=== PATIENT | male | born 1950 | race African-American/Black ===

== ENCOUNTER 2022-03-31 17:15 | Outpatient (CLI) | payer MEDICARE | END 2022-03-31 17:16 | disposition home or self-care (01) | LOC: LABBT 17:15 | PROVIDERS: ATTEND Internal Medicine Gastroenterology | DX: Z20.822 Contact with and (suspected) exposure to COVID-19 (principal) | CPT/HCPCS: 87811 ==

== ENCOUNTER 2022-04-04 09:55 | Day surgery (SDC) | payer MEDICARE ==
[2022-04-01 10:56] VITALS: BMI 29.9
[2022-04-04] MEDS ORDERED: ePHEDrine 50 MG/ML VIAL ONE (12:13)
[2022-04-04] MEDS ORDERED: PROPOFOL 200 MG/20 ML VIAL ONE (12:13)
== END 2022-04-04 13:42 | disposition home or self-care (01) ==
LOC: SDC 09:55
PROVIDERS: ATTEND Internal Medicine Gastroenterology
PROC: 0DBL8ZX Excision of Transverse Colon, Via Natural or Artificial Opening Endoscopic, Diagnostic (ICD-10-PCS; principal; 2022-04-04)
DX: D12.3 Benign neoplasm of transverse colon (principal); K64.1 Second degree hemorrhoids; F17.290 Nicotine dependence, other tobacco product, uncomplicated; Z79.01 Long term (current) use of anticoagulants; Z79.899 Other long term (current) drug therapy; Z95.810 Presence of automatic (implantable) cardiac defibrillator
CPT/HCPCS: 88305; J2704; J3490

== ENCOUNTER 2022-06-25 21:22 | Inpatient (IN) | payer MEDICARE ==
[~2022-06-25 21:22] MED LIST: Heparin 1,000 UNITS/ML VIAL ONE
[2022-06-25] MEDS ORDERED: Ondansetron PF 4 MG/2 ML Vial IVP PRN (23:56)
[2022-06-25] MEDS ORDERED: Ondansetron ODT 4 MG TAB PO PRN (23:56)
[2022-06-25] MEDS ORDERED: Acetaminophen 650 MG Suppository PR PRN (23:56)
[2022-06-25] MEDS ORDERED: Acetaminophen 325 MG TAB PO PRN (23:56)
[2022-06-26] MEDS ORDERED: Lactated Ringer's 1,000 ML IV SCH (00:15)
[2022-06-26] MEDS ORDERED: CHLORPROMAZINE HCL 10 MG PO PRN (01:44)
[2022-06-26] MEDS ORDERED: Acetaminophen 325 MG TAB PER TUBE PRN (01:46)
[2022-06-26] MEDS ORDERED: Ondansetron ODT 4 MG TAB PER TUBE PRN (01:47)
[2022-06-26] MEDS ORDERED: chlorproMAZINE HCl 25 MG TAB PER TUBE PRN (02:51)
[2022-06-26] MEDS ORDERED: VANCOMYCIN 1.25 GM/250 ML BAG 1.25 GM in Premix Bag 1 BAG IVPB SCH (03:00)
[2022-06-26] MEDS ORDERED: Cefepime 2 GM in Sodium Chloride 0.9% 100 ML IVPB SCH ×2 (06:00→09:00)
[2022-06-26 06:16] LABS: Actual Bicarbonate (HCO3a) 25.3 mEq/L (22-28); Base Excess (BEa) 3.6 mEq/L (-2.0 to +3.0); CO2 Tension 29.1 mmHg (35.0-45.0); Calcium, Ionized (arterial) 1.08 mmol/L (1.12-1.30); Carboxyhemoglobin (COHb) 0.5 gm% (0.0-3.0); Hemoglobin (Hb) 11.2 g/dL (14.0-18.0); O2 Tension (PaO2), arterial 62.4 mmHg (> 70.0); Potassium - ABG Lab 4.23 mmol/L (3.70-5.30); pH, Arterial 7.56 (7.35-7.45)
[2022-06-26 06:19] LABS: Puncture Site RRA
[2022-06-26 06:29] LABS: ALT (SGPT) 31 U/L (8-55); AST (SGOT) 21 U/L (5-34); Alkaline Phosphatase 110 U/L (40-110); Anion Gap 20 mmol/L (10-20); BUN (Urea Nitrogen) 22 mg/dL (8.4-25.7); Bilirubin, Total 1.9 mg/dL (0.2-1.2); Calc. Creatinine Clearance 38 mL/min (70-130); Calcium 9.1 mg/dL (7.8-10.44); Carbon Dioxide 25 mmol/L (23-31); Chloride 90 mmol/L (98-107); Estimated GFR 49; Globulin 4.5 g/dL (2.4-3.5); Glucose 145 mg/dL (83-110); Potassium 4.1 mmol/L (3.5-5.1); Protein, Total 7.5 g/dL (5.8-8.1); Sodium 131 mmol/L (136-145)
[2022-06-26 06:45] LABS: Band 22 % (5-11); Hemoglobin 10.2 g/dL (14.0-18.0); Hypochromia SLIGHT = 6-15 cells (100X) (0-5/hpf); Lymphocytes 3 % (21-51); MDiff Complete? YES; Mean Corpuscular Hemoglobin 30.4 pg (27.0-31.0); Mean Corpuscular Volume 98.2 fl (78.0-98.0); Mean Platelet Volume 7.5 fL (7.4-10.4); Monocytes 2 % (0-10); Neutrophil 73 % (42-75); Platelet Count 356 10x3/uL (130-400); Platelet Morphology Comment Appears Adequate; RBC Distribution Width 14.8 % (11.5-14.5); Red Blood Cell (RBC) Count 3.36 mill/uL (4.70-6.10); White Blood Cell (WBC) Count 22.1 10x3/uL (4.8-10.8)
[2022-06-26] MEDS ORDERED: Ketorolac Tromethamine 30 MG/ML VIAL IVP SCH (06:45)
[2022-06-26] MEDS: Budesonide 0.5 MG/2 ML NEB NEB SCH ×2 (07:11→18:49)
[2022-06-26] MEDS ORDERED: Ferrous Sulfate 325 MG TAB PO SCH (08:00)
[2022-06-26] MEDS ORDERED: Electrolyte Replacement Protocol FS PRN (08:45)
[2022-06-26] MEDS ORDERED: Electrolyte Replacement Protocol 1 EACH FS SCH (08:45)
[2022-06-26] MEDS ORDERED: Tamsulosin HCl 0.4 MG CAP PO SCH (09:00)
[2022-06-26] MEDS ORDERED: Folic Acid 1 MG TAB PER TUBE SCH (09:00)
[2022-06-26] MEDS ORDERED: Meropenem 1 GM in Sodium Chloride 0.9% 100 ML IVPB SCH (09:00)
[2022-06-26] MEDS ORDERED: Carvedilol 6.25 MG TAB PO SCH (09:00)
[2022-06-26] MEDS ORDERED: Allopurinol 300 MG TAB PO SCH (09:00)
[2022-06-26] MEDS ORDERED: Carvedilol 6.25 MG TAB PER TUBE SCH (09:00)
[2022-06-26] MEDS ORDERED: Famotidine 20 MG TAB PO SCH (09:00)
[2022-06-26] MEDS ORDERED: Allopurinol 300 MG TAB PER TUBE SCH (09:00)
[2022-06-26] MEDS ORDERED: Enoxaparin Sodium 40 MG/0.4 ML SYRINGE SC SCH (09:00)
[2022-06-26 09:05] LABS: Hemoglobin 9.8 g/dL (14.0-18.0); Platelet Count 253 10x3/uL (130-400)
[2022-06-26 09:19] LABS: Troponin I 0.102 ng/mL (< 0.028)
[2022-06-26] MEDS ORDERED: Iopamidol-370 76% 500 ML 1 ML ONE (09:33)
[2022-06-26] MEDS: Lactated Ringer's 1,000 ML IV SCH (09:40)
[2022-06-26] MEDS: metroNIDAZOLE 500 MG in Premix Bag 1 BAG IVPB SCH ×3 (09:40→22:27)
[2022-06-26] MEDS: Pantoprazole 40 MG VIAL IVP SCH (09:41)
[2022-06-26] MEDS: Heparin 25,000 units/D5W 500 ML IVPB SCH (09:41)
[2022-06-26] MEDS: Heparin 10,000 UNITS/ 10 ML VIAL SLOW IVP SCH ×2 (09:56→16:27)
[2022-06-26] MEDS: Vancomycin HCl 750 MG in Sodium Chloride 0.9% 250 ML 250 ML IVPB SCH (15:16)
[2022-06-26] MEDS: Meropenem 1 GM in Sodium Chloride 0.9% 100 ML IVPB SCH (16:55)
[2022-06-26] MEDS ORDERED: Oxybutynin 5 MG TAB PER TUBE SCH (21:00)
[2022-06-27] MEDS: Vancomycin HCl 750 MG in Sodium Chloride 0.9% 250 ML 250 ML IVPB SCH ×2 (03:07→18:05)
[2022-06-27] MEDS: Meropenem 1 GM in Sodium Chloride 0.9% 100 ML IVPB SCH ×2 (04:44→18:48)
[2022-06-27] MEDS: Lactated Ringer's 1,000 ML IV SCH (04:44)
[2022-06-27 04:46] LABS: #Eosinphils 0.4 thou/uL (0.0-0.7); #Lymphocytes 1.1 thou/uL (1.20-3.40); #Monocytes 0.9 thou/uL (0.11-0.59); #Neutrophils 9.9 thou/uL (1.40-6.50); %Basophils 0.2 % (0.0-1.0); %Eosinophils 2.9 % (0.0-10.0); %Lymphocytes 8.7 % (21.0-51.0); %Monocytes 7.5 % (0.0-10.0); %Neutrophils 80.7 % (42.0-75.0); Hemoglobin 9.1 g/dL (14.0-18.0); Mean Corpuscular HGB CONC 32.8 g/dL (32.0-36.0); Mean Corpuscular Hemoglobin 31.9 pg (27.0-31.0); Mean Corpuscular Volume 97.2 fl (78.0-98.0); Platelet Count 250 10x3/uL (130-400); RBC Distribution Width 14.7 % (11.5-14.5); Red Blood Cell (RBC) Count 2.84 mill/uL (4.70-6.10); White Blood Cell (WBC) Count 12.3 10x3/uL (4.8-10.8)
[2022-06-27] MEDS: Heparin 10,000 UNITS/ 10 ML VIAL SLOW IVP SCH ×2 (05:12→12:05)
[2022-06-27] MEDS: Heparin 25,000 units/D5W 500 ML IVPB SCH (05:17)
[2022-06-27 05:21] LABS: ALT (SGPT) 22 U/L (8-55); AST (SGOT) 16 U/L (5-34); Albumin 2.4 g/dL (3.4-4.8); Alkaline Phosphatase 85 U/L (40-110); Anion Gap 12 mmol/L (10-20); BUN (Urea Nitrogen) 18 mg/dL (8.4-25.7); Calc. Creatinine Clearance 48 mL/min (70-130); Calcium 7.7 mg/dL (7.8-10.44); Carbon Dioxide 31 mmol/L (23-31); Chloride 97 mmol/L (98-107); Estimated GFR 65; Glucose 100 mg/dL (83-110); Potassium 3.9 mmol/L (3.5-5.1); Protein, Total 5.4 g/dL (5.8-8.1); Sodium 136 mmol/L (136-145)
[2022-06-27] MEDS: metroNIDAZOLE 500 MG in Premix Bag 1 BAG IVPB SCH ×3 (06:19→21:07)
[2022-06-27] MEDS: Budesonide 0.5 MG/2 ML NEB NEB SCH ×2 (07:13→18:17)
[2022-06-27] MEDS: Pantoprazole 40 MG VIAL IVP SCH (08:11)
[2022-06-27] MEDS: Neostigmine 0.5 MG in Syringe 0 ML SC SCH ×3 (10:30→21:06)
[2022-06-27 15:10] LABS: Vancomycin, Trough 12.1 ug/mL
[2022-06-27] MEDS: Vancomycin 1 GM in Premix Bag 1 BAG IVPB SCH (17:41)
[2022-06-28] MEDS: Lactated Ringer's 1,000 ML IV SCH (00:27)
[2022-06-28] MEDS: Heparin 25,000 units/D5W 500 ML IVPB SCH ×2 (00:29→18:26)
[2022-06-28] MEDS: Vancomycin 1 GM in Premix Bag 1 BAG IVPB SCH ×2 (03:24→15:24)
[2022-06-28] MEDS: Neostigmine 0.5 MG in Syringe 0 ML SC SCH (03:25)
[2022-06-28 03:41] LABS: #Basophils 0.1 thou/uL (0.0-0.2); #Eosinphils 0.4 thou/uL (0.0-0.7); #Lymphocytes 1.3 thou/uL (1.20-3.40); #Neutrophils 10.6 thou/uL (1.40-6.50); %Basophils 0.4 % (0.0-1.0); %Lymphocytes 9.7 % (21.0-51.0); %Monocytes 7.5 % (0.0-10.0); %Neutrophils 79.4 % (42.0-75.0); Hemoglobin 8.5 g/dL (14.0-18.0); Mean Corpuscular HGB CONC 30.8 g/dL (32.0-36.0); Mean Corpuscular Hemoglobin 30.8 pg (27.0-31.0); Mean Platelet Volume 7.3 fL (7.4-10.4); Platelet Count 300 10x3/uL (130-400); Red Blood Cell (RBC) Count 2.76 mill/uL (4.70-6.10); White Blood Cell (WBC) Count 13.4 10x3/uL (4.8-10.8)
[2022-06-28 03:57] LABS: ALT (SGPT) 17 U/L (8-55); AST (SGOT) 18 U/L (5-34); Albumin 2.4 g/dL (3.4-4.8); Alkaline Phosphatase 88 U/L (40-110); Anion Gap 13 mmol/L (10-20); BUN (Urea Nitrogen) 13 mg/dL (8.4-25.7); Bilirubin, Total 0.8 mg/dL (0.2-1.2); Calc. Creatinine Clearance 55 mL/min (70-130); Calcium 8.3 mg/dL (7.8-10.44); Carbon Dioxide 31 mmol/L (23-31); Chloride 98 mmol/L (98-107); Estimated GFR 77; Globulin 3.7 g/dL (2.4-3.5); Glucose 107 mg/dL (83-110); Potassium 3.2 mmol/L (3.5-5.1); Protein, Total 6.1 g/dL (5.8-8.1); Sodium 139 mmol/L (136-145)
[2022-06-28] MEDS: metroNIDAZOLE 500 MG in Premix Bag 1 BAG IVPB SCH ×3 (05:06→21:14)
[2022-06-28] MEDS: Meropenem 1 GM in Sodium Chloride 0.9% 100 ML IVPB SCH ×3 (05:06→21:12)
[2022-06-28] MEDS: Budesonide 0.5 MG/2 ML NEB NEB SCH ×2 (06:57→18:27)
[2022-06-28] MEDS: Pantoprazole 40 MG VIAL IVP SCH (08:37)
[2022-06-28] MEDS: Potassium Chloride 20 MEQ in Premix Bag 1 BAG IVPB SCH ×2 (08:38→10:33)
[2022-06-28] MEDS: chlorproMAZINE HCl 25 MG TAB PO PRN (10:33)
[2022-06-28 14:14] LABS: Potassium 3.5 mmol/L (3.5-5.1)
[2022-06-28] MEDS: Multivitamins, Adult 10 ML, TRACE ELEMENT CONCENTRATE 1 ML in D15W-AA 5% with Lytes 2,0... IV SCH (14:26)
[2022-06-29] MEDS: Vancomycin 1 GM in Premix Bag 1 BAG IVPB SCH (02:58)
[2022-06-29] MEDS: metroNIDAZOLE 500 MG in Premix Bag 1 BAG IVPB SCH (05:01)
[2022-06-29] MEDS: Meropenem 1 GM in Sodium Chloride 0.9% 100 ML IVPB SCH ×3 (05:01→20:46)
[2022-06-29 05:27] LABS: Phosphorus 5.1 mg/dL (2.3-4.7)
[2022-06-29 05:30] LABS: Albumin 2.2 g/dL (3.4-4.8); Bilirubin, Total 0.6 mg/dL (0.2-1.2); Calcium 8.3 mg/dL (7.8-10.44)
[2022-06-29 05:36] LABS: #Eosinphils 0.3 thou/uL (0.0-0.7); #Lymphocytes 1.1 thou/uL (1.20-3.40); #Monocytes 0.7 thou/uL (0.11-0.59); #Neutrophils 8.4 thou/uL (1.40-6.50); %Basophils 0.2 % (0.0-1.0); %Eosinophils 3.1 % (0.0-10.0); %Lymphocytes 10.2 % (21.0-51.0); %Monocytes 6.5 % (0.0-10.0); %Neutrophils 80.1 % (42.0-75.0); Hemoglobin 8.1 g/dL (14.0-18.0); Mean Corpuscular HGB CONC 30.7 g/dL (32.0-36.0); Mean Corpuscular Hemoglobin 31.3 pg (27.0-31.0); Mean Platelet Volume 7.2 fL (7.4-10.4); Platelet Count 288 10x3/uL (130-400); RBC Distribution Width 15.6 % (11.5-14.5); Red Blood Cell (RBC) Count 2.58 mill/uL (4.70-6.10); White Blood Cell (WBC) Count 10.5 10x3/uL (4.8-10.8)
[2022-06-29 05:44] LABS: INR-International Normal Ratio 1.5; PTT 41.8 sec (22.9-36.1); Prothrombin Time 19.1 sec (12.0-14.7)
[2022-06-29 06:12] LABS: Glucose 167 mg/dL (83-110)
[2022-06-29 06:13] LABS: Carbon Dioxide 31 mmol/L (23-31); Chloride 100 mmol/L (98-107); Potassium 3.2 mmol/L (3.5-5.1); Sodium 138 mmol/L (136-145)
[2022-06-29 06:14] LABS: Anion Gap 10 mmol/L (10-20); BUN (Urea Nitrogen) 17 mg/dL (8.4-25.7); Calc. Creatinine Clearance 71 mL/min (70-130); Estimated GFR 94; Protein, Total 5.9 g/dL (5.8-8.1)
[2022-06-29 06:15] LABS: ALT (SGPT) 12 U/L (8-55); AST (SGOT) 15 U/L (5-34); Alkaline Phosphatase 65 U/L (40-110); Globulin 3.7 g/dL (2.4-3.5); Magnesium 1.8 mg/dL (1.6-2.6)
[2022-06-29] MEDS ORDERED: Potassium Chloride 40 MEQ in Premix Bag 1 BAG IVPB SCH (08:00)
[2022-06-29] MEDS: Budesonide 0.5 MG/2 ML NEB NEB SCH ×2 (08:10→18:58)
[2022-06-29] MEDS ORDERED: Magnesium 2 GM/50 ML(in water) 2 GM in Premix Bag 1 BAG IVPB SCH (08:15)
[2022-06-29] MEDS: Potassium Chloride 20 MEQ in Premix Bag 1 BAG IVPB SCH ×2 (08:35→12:20)
[2022-06-29] MEDS: Pantoprazole 40 MG VIAL IVP SCH (08:36)
[2022-06-29] MEDS: chlorproMAZINE HCl 25 MG TAB PO PRN (08:36)
[2022-06-29] MEDS ORDERED: FLU VACC QS2022-23(65YR UP)/PF 240 MCG/0.7 ML SYRINGE IM ONE (09:00)
[2022-06-29] MEDS ORDERED: Sodium Bicarbonate 2.5 MEQ/5 ML VIAL ONE (09:13)
[2022-06-29] MEDS ORDERED: FENTANYL 50 MCG/ML 1 ML VIAL ONE (09:14)
[2022-06-29] MEDS: Multivitamins, Adult 10 ML, TRACE ELEMENT CONCENTRATE 1 ML in D15W-AA 5% with Lytes 2,0... IV SCH (14:43)
[2022-06-29] MEDS: Heparin 10,000 UNITS/ 10 ML VIAL SLOW IVP SCH (22:57)
[2022-06-30] MEDS: Heparin 25,000 units/D5W 500 ML IVPB SCH (03:31)
[2022-06-30] MEDS: Meropenem 1 GM in Sodium Chloride 0.9% 100 ML IVPB SCH ×3 (04:54→20:39)
[2022-06-30 05:32] LABS: #Eosinphils 0.2 thou/uL (0.0-0.7); #Lymphocytes 1.2 thou/uL (1.20-3.40); #Monocytes 0.8 thou/uL (0.11-0.59); #Neutrophils 9.1 thou/uL (1.40-6.50); %Basophils 0.2 % (0.0-1.0); %Eosinophils 2.1 % (0.0-10.0); %Lymphocytes 10.7 % (21.0-51.0); %Monocytes 6.9 % (0.0-10.0); %Neutrophils 80.2 % (42.0-75.0); Hemoglobin 7.9 g/dL (14.0-18.0); Mean Corpuscular HGB CONC 31.7 g/dL (32.0-36.0); Mean Corpuscular Hemoglobin 31.1 pg (27.0-31.0); Mean Corpuscular Volume 98.1 fl (78.0-98.0); Mean Platelet Volume 7.1 fL (7.4-10.4); Platelet Count 250 10x3/uL (130-400); RBC Distribution Width 15.6 % (11.5-14.5); Red Blood Cell (RBC) Count 2.55 mill/uL (4.70-6.10); White Blood Cell (WBC) Count 11.4 10x3/uL (4.8-10.8)
[2022-06-30 05:43] LABS: ALT (SGPT) 9 U/L (8-55); AST (SGOT) 13 U/L (5-34); Albumin 2.3 g/dL (3.4-4.8); Alkaline Phosphatase 62 U/L (40-110); Anion Gap 11 mmol/L (10-20); BUN (Urea Nitrogen) 16 mg/dL (8.4-25.7); Bilirubin, Total 0.5 mg/dL (0.2-1.2); Calc. Creatinine Clearance 80 mL/min (70-130); Carbon Dioxide 29 mmol/L (23-31); Chloride 102 mmol/L (98-107); Estimated GFR 98; Globulin 3.5 g/dL (2.4-3.5); Glucose 145 mg/dL (83-110); Magnesium 1.6 mg/dL (1.6-2.6); Potassium 3.6 mmol/L (3.5-5.1); Protein, Total 5.8 g/dL (5.8-8.1); Sodium 138 mmol/L (136-145)
[2022-06-30] MEDS: Budesonide 0.5 MG/2 ML NEB NEB SCH ×2 (06:15→19:12)
[2022-06-30] MEDS ORDERED: Magnesium 2 GM/50 ML(in water) 2 GM in Premix Bag 1 BAG IVPB SCH (08:00)
[2022-06-30] MEDS: Pantoprazole 40 MG VIAL IVP SCH (09:12)
[2022-06-30] MEDS: Apixaban 5 MG TAB PO SCH (20:39)
[2022-07-01] MEDS: Meropenem 1 GM in Sodium Chloride 0.9% 100 ML IVPB SCH ×3 (04:30→20:57)
[2022-07-01 04:37] LABS: ALT (SGPT) 14 U/L (8-55); AST (SGOT) 25 U/L (5-34); Albumin 2.5 g/dL (3.4-4.8); Alkaline Phosphatase 70 U/L (40-110); Anion Gap 10 mmol/L (10-20); BUN (Urea Nitrogen) 15 mg/dL (8.4-25.7); Bilirubin, Total 0.8 mg/dL (0.2-1.2); Calc. Creatinine Clearance 76 mL/min (70-130); Calcium 8.5 mg/dL (7.8-10.44); Carbon Dioxide 29 mmol/L (23-31); Chloride 101 mmol/L (98-107); Estimated GFR 97; Globulin 4.2 g/dL (2.4-3.5); Glucose 107 mg/dL (83-110); Magnesium 1.5 mg/dL (1.6-2.6); Phosphorus 2.3 mg/dL (2.3-4.7); Potassium 3.8 mmol/L (3.5-5.1); Protein, Total 6.7 g/dL (5.8-8.1); Sodium 136 mmol/L (136-145)
[2022-07-01 05:06] LABS: Band 10 % (5-11); Eosinophils 2 % (0-10); Lymphocytes 17 % (21-51); MDiff Complete? YES; Mean Corpuscular HGB CONC 32.2 g/dL (32.0-36.0); Mean Corpuscular Hemoglobin 31.3 pg (27.0-31.0); Mean Corpuscular Volume 97.1 fl (78.0-98.0); Mean Platelet Volume 7.4 fL (7.4-10.4); Monocytes 1 % (0-10); Neutrophil 70 % (42-75); Platelet Count 269 10x3/uL (130-400); RBC Distribution Width 15.7 % (11.5-14.5); Red Blood Cell (RBC) Count 2.88 mill/uL (4.70-6.10); White Blood Cell (WBC) Count 13.6 10x3/uL (4.8-10.8)
[2022-07-01] MEDS: Budesonide 0.5 MG/2 ML NEB NEB SCH ×2 (06:48→18:57)
[2022-07-01] MEDS ORDERED: Magnesium 2 GM/50 ML(in water) 2 GM in Premix Bag 1 BAG IVPB SCH ×2 (08:00→16:15)
[2022-07-01] MEDS: Apixaban 5 MG TAB PO SCH ×2 (09:29→20:58)
[2022-07-01] MEDS: Lactated Ringer's 1,000 ML IV SCH (09:34)
[2022-07-01] MEDS ORDERED: Morphine 4 MG/ML VIAL SLOW IVP SCH (10:45)
[2022-07-01] MEDS: Acetaminophen 500 MG TAB PO SCH ×2 (11:18→17:00)
[2022-07-01] MEDS: Polyethylene Glycol 3350 17 GM Packet PO SCH (11:21)
[2022-07-01] MEDS ORDERED: Iopamidol-370 76% 500 ML 1 ML ONE (11:48)
[2022-07-01] MEDS ORDERED: Potassium Phosphate 30 MMOL, Magnesium Sulfate 2 GM in Sodium Chloride 0.9% 500 ML IVPB SCH (16:30)
[2022-07-01 17:28] LABS: #Eosinphils 0.2 thou/uL (0.0-0.7); #Lymphocytes 1.5 thou/uL (1.20-3.40); #Monocytes 0.9 thou/uL (0.11-0.59); #Neutrophils 11.3 thou/uL (1.40-6.50); %Basophils 0.3 % (0.0-1.0); %Eosinophils 1.6 % (0.0-10.0); %Lymphocytes 10.5 % (21.0-51.0); %Monocytes 6.3 % (0.0-10.0); %Neutrophils 81.3 % (42.0-75.0); Hemoglobin 9.4 g/dL (14.0-18.0); Mean Corpuscular HGB CONC 31.9 g/dL (32.0-36.0); Mean Corpuscular Volume 97.1 fl (78.0-98.0); Mean Platelet Volume 7.6 fL (7.4-10.4); Platelet Count 303 10x3/uL (130-400); Red Blood Cell (RBC) Count 3.05 mill/uL (4.70-6.10); White Blood Cell (WBC) Count 13.9 10x3/uL (4.8-10.8)
[2022-07-01] MEDS ORDERED: Lactated Ringer's 500 ML IV SCH (17:45)
[2022-07-01 17:47] LABS: ALT (SGPT) 18 U/L (8-55); AST (SGOT) 33 U/L (5-34); Albumin 2.8 g/dL (3.4-4.8); Alkaline Phosphatase 83 U/L (40-110); Anion Gap 14 mmol/L (10-20); BUN (Urea Nitrogen) 20 mg/dL (8.4-25.7); Bilirubin, Total 0.9 mg/dL (0.2-1.2); Calc. Creatinine Clearance 57 mL/min (70-130); Calcium 8.7 mg/dL (7.8-10.44); Carbon Dioxide 27 mmol/L (23-31); Chloride 101 mmol/L (98-107); Estimated GFR 81; Globulin 4.4 g/dL (2.4-3.5); Glucose 128 mg/dL (83-110); Potassium 4.4 mmol/L (3.5-5.1); Protein, Total 7.2 g/dL (5.8-8.1); Sodium 138 mmol/L (136-145)
[2022-07-01 17:48] LABS: Lactic Acid 1.2 mmol/L (0.5-2.2)
[2022-07-01] MEDS: Senokot S 8.6-50 MG TAB PO SCH (20:58)
[2022-07-02] MEDS: Acetaminophen 500 MG TAB PO SCH ×4 (01:18→18:46)
[2022-07-02] MEDS: Lactated Ringer's 1,000 ML IV SCH ×3 (02:07→20:19)
[2022-07-02] MEDS: Meropenem 1 GM in Sodium Chloride 0.9% 100 ML IVPB SCH ×3 (05:36→20:18)
[2022-07-02 06:16] LABS: #Eosinphils 0.2 thou/uL (0.0-0.7); #Lymphocytes 1.2 thou/uL (1.20-3.40); #Monocytes 0.7 thou/uL (0.11-0.59); #Neutrophils 6.7 thou/uL (1.40-6.50); %Basophils 0.3 % (0.0-1.0); %Eosinophils 2.1 % (0.0-10.0); %Lymphocytes 13.9 % (21.0-51.0); %Monocytes 7.4 % (0.0-10.0); %Neutrophils 76.3 % (42.0-75.0); Hemoglobin 8.5 g/dL (14.0-18.0); Mean Corpuscular HGB CONC 30.9 g/dL (32.0-36.0); Mean Corpuscular Hemoglobin 29.9 pg (27.0-31.0); Mean Platelet Volume 7.6 fL (7.4-10.4); Platelet Count 257 10x3/uL (130-400); RBC Distribution Width 15.9 % (11.5-14.5); Red Blood Cell (RBC) Count 2.84 mill/uL (4.70-6.10); White Blood Cell (WBC) Count 8.8 10x3/uL (4.8-10.8)
[2022-07-02 06:37] LABS: ALT (SGPT) 14 U/L (8-55); AST (SGOT) 21 U/L (5-34); Albumin 2.5 g/dL (3.4-4.8); Alkaline Phosphatase 78 U/L (40-110); Anion Gap 12 mmol/L (10-20); BUN (Urea Nitrogen) 18 mg/dL (8.4-25.7); Bilirubin, Total 0.8 mg/dL (0.2-1.2); Calc. Creatinine Clearance 69 mL/min (70-130); Calcium 8.4 mg/dL (7.8-10.44); Carbon Dioxide 29 mmol/L (23-31); Chloride 101 mmol/L (98-107); Estimated GFR 94; Globulin 4.1 g/dL (2.4-3.5); Glucose 113 mg/dL (83-110); Magnesium 2.3 mg/dL (1.6-2.6); Potassium 4.6 mmol/L (3.5-5.1); Protein, Total 6.6 g/dL (5.8-8.1); Sodium 137 mmol/L (136-145)
[2022-07-02 06:47] LABS: Phosphorus 3.7 mg/dL (2.3-4.7)
[2022-07-02] MEDS: Budesonide 0.5 MG/2 ML NEB NEB SCH ×2 (07:15→18:26)
[2022-07-02] MEDS ORDERED: Heparin 10,000 UNITS/ 10 ML VIAL SLOW IVP SCH (08:30)
[2022-07-02] MEDS ORDERED: Heparin 25,000 units/D5W 500 ML IVPB SCH (09:00)
[2022-07-02 09:06] LABS: Hemoglobin 8.2 g/dL (14.0-18.0); Platelet Count 245 10x3/uL (130-400)
[2022-07-02 10:14] LABS: INR-International Normal Ratio 1.8; Prothrombin Time 21.5 sec (12.0-14.7)
[2022-07-02 10:15] LABS: PTT 49.9 sec (22.9-36.1)
[2022-07-02] MEDS ORDERED: fentaNYL PF 100 MCG/2 ML SYRINGE ONE (10:27)
[2022-07-02] MEDS ORDERED: Ketamine 50 MG/ML (10ML VIAL) ONE (10:27)
[2022-07-02] MEDS ORDERED: Albumin 25% 100 ML ONE (10:34)
[2022-07-02] MEDS ORDERED: Phenylephrine 10 MG/ML VIAL ONE (10:35)
[2022-07-02] MEDS ORDERED: Sodium Chloride 0.9% 100 ML ONE (10:45)
[2022-07-02] MEDS ORDERED: CEFAZOLIN 2 GM VIAL ONE (10:45)
[2022-07-02] MEDS ORDERED: PROPOFOL 200 MG/20 ML VIAL ONE (10:55)
[2022-07-02] MEDS ORDERED: Dexamethasone 20 MG/5 ML VIAL ONE (10:55)
[2022-07-02] MEDS ORDERED: Rocuronium Bromide 10 MG/ML (10ML VIAL) ONE (10:55)
[2022-07-02] MEDS ORDERED: Ondansetron PF 4 MG/2 ML Vial ONE (10:55)
[2022-07-02] MEDS: Polyethylene Glycol 3350 17 GM Packet PO SCH (12:50)
[2022-07-02] MEDS: Senokot S 8.6-50 MG TAB PO SCH ×2 (12:50→21:00)
[2022-07-02] MEDS ORDERED: Midazolam HCl 2 mg/2 ml Vial ONE (13:21)
[2022-07-02] MEDS ORDERED: Midazolam HCl 2 mg/2 ml Vial IVP PRN (13:31)
[2022-07-02] MEDS ORDERED: Furosemide 40 MG/4 ML VIAL ONE (14:56)
[2022-07-02] MEDS: Morphine 4 MG/ML VIAL SLOW IVP PRN ×2 (15:00→21:40)
[2022-07-02] MEDS ORDERED: Morphine 4 MG/ML VIAL ONE (15:01)
[2022-07-02] MEDS ORDERED: Furosemide 40 MG/4 ML VIAL SLOW IVP SCH (15:15)
[2022-07-02] MEDS ORDERED: hydrALAZINE 20 MG/ML VIAL SLOW IVP PRN (15:23)
[2022-07-02] MEDS ORDERED: Labetalol HCl 100 MG/20 ML VIAL SLOW IVP PRN (15:23)
[2022-07-02 17:05] LABS: #Eosinphils 0.1 thou/uL (0.0-0.7); #Lymphocytes 1.1 thou/uL (1.20-3.40); #Monocytes 0.5 thou/uL (0.11-0.59); #Neutrophils 12.3 thou/uL (1.40-6.50); %Basophils 0.3 % (0.0-1.0); %Eosinophils 0.4 % (0.0-10.0); %Lymphocytes 7.8 % (21.0-51.0); %Monocytes 3.4 % (0.0-10.0); %Neutrophils 88.1 % (42.0-75.0); Hemoglobin 9.3 g/dL (14.0-18.0); Mean Corpuscular HGB CONC 30.8 g/dL (32.0-36.0); Mean Corpuscular Hemoglobin 29.8 pg (27.0-31.0); Mean Platelet Volume 7.4 fL (7.4-10.4); Platelet Count 300 10x3/uL (130-400); RBC Distribution Width 16.1 % (11.5-14.5); Red Blood Cell (RBC) Count 3.12 mill/uL (4.70-6.10)
[2022-07-03] MEDS: Acetaminophen 500 MG TAB PO SCH ×4 (00:23→18:15)
[2022-07-03] MEDS: Lactated Ringer's 1,000 ML IV SCH (03:20)
[2022-07-03 04:46] LABS: #Eosinphils 0.1 thou/uL (0.0-0.7); #Lymphocytes 1.4 thou/uL (1.20-3.40); #Monocytes 0.5 thou/uL (0.11-0.59); #Neutrophils 7.4 thou/uL (1.40-6.50); %Basophils 0.3 % (0.0-1.0); %Eosinophils 0.9 % (0.0-10.0); %Lymphocytes 14.6 % (21.0-51.0); %Monocytes 5.5 % (0.0-10.0); %Neutrophils 78.7 % (42.0-75.0); Hemoglobin 7.8 g/dL (14.0-18.0); Mean Corpuscular HGB CONC 31.5 g/dL (32.0-36.0); Mean Corpuscular Hemoglobin 30.4 pg (27.0-31.0); Mean Corpuscular Volume 96.6 fl (78.0-98.0); Mean Platelet Volume 7.5 fL (7.4-10.4); Platelet Count 234 10x3/uL (130-400); Red Blood Cell (RBC) Count 2.55 mill/uL (4.70-6.10); White Blood Cell (WBC) Count 9.4 10x3/uL (4.8-10.8)
[2022-07-03 05:12] LABS: Phosphorus 3.3 mg/dL (2.3-4.7)
[2022-07-03 05:13] LABS: ALT (SGPT) 10 U/L (8-55); AST (SGOT) 15 U/L (5-34); Albumin 2.5 g/dL (3.4-4.8); Alkaline Phosphatase 54 U/L (40-110); Anion Gap 11 mmol/L (10-20); BUN (Urea Nitrogen) 17 mg/dL (8.4-25.7); Bilirubin, Total 1.1 mg/dL (0.2-1.2); Calc. Creatinine Clearance 60 mL/min (70-130); Calcium 7.9 mg/dL (7.8-10.44); Carbon Dioxide 30 mmol/L (23-31); Chloride 105 mmol/L (98-107); Estimated GFR 89; Globulin 3.2 g/dL (2.4-3.5); Glucose 115 mg/dL (83-110); Magnesium 1.8 mg/dL (1.6-2.6); Potassium 4.7 mmol/L (3.5-5.1); Protein, Total 5.7 g/dL (5.8-8.1); Sodium 141 mmol/L (136-145)
[2022-07-03] MEDS: Meropenem 1 GM in Sodium Chloride 0.9% 100 ML IVPB SCH ×3 (05:40→21:37)
[2022-07-03] MEDS: Budesonide 0.5 MG/2 ML NEB NEB SCH ×2 (07:36→18:45)
[2022-07-03] MEDS ORDERED: Magnesium 2 GM/50 ML(in water) 2 GM in Premix Bag 1 BAG IVPB SCH (08:00)
[2022-07-03] MEDS: Polyethylene Glycol 3350 17 GM Packet PO SCH (11:20)
[2022-07-03] MEDS: Senokot S 8.6-50 MG TAB PO SCH ×2 (11:20→21:47)
[2022-07-03] MEDS: Multivitamins, Adult 10 ML, TRACE ELEMENT CONCENTRATE 1 ML in D15W-AA 5% with Lytes 2,0... IV SCH (14:30)
[2022-07-03] MEDS ORDERED: Lactated Ringer's 500 ML IV SCH ×2 (14:45→15:15)
[2022-07-03] MEDS ORDERED: Heparin 25,000 units/D5W 500 ML IVPB SCH (15:00)
[2022-07-03] MEDS ORDERED: Heparin 10,000 UNITS/ 10 ML VIAL SLOW IVP SCH (15:00)
[2022-07-04] MEDS: Acetaminophen 500 MG TAB PO SCH ×5 (00:30→23:14)
[2022-07-04 05:26] LABS: #Eosinphils 0.1 thou/uL (0.0-0.7); #Lymphocytes 1.3 thou/uL (1.20-3.40); #Monocytes 0.5 thou/uL (0.11-0.59); #Neutrophils 7.8 thou/uL (1.40-6.50); %Basophils 0.1 % (0.0-1.0); %Eosinophils 1.3 % (0.0-10.0); %Lymphocytes 13.2 % (21.0-51.0); %Neutrophils 80.5 % (42.0-75.0); Hemoglobin 7.3 g/dL (14.0-18.0); Mean Corpuscular HGB CONC 32.7 g/dL (32.0-36.0); Mean Corpuscular Hemoglobin 31.5 pg (27.0-31.0); Mean Corpuscular Volume 96.5 fl (78.0-98.0); Mean Platelet Volume 7.7 fL (7.4-10.4); Platelet Count 227 10x3/uL (130-400); RBC Distribution Width 16.3 % (11.5-14.5); Red Blood Cell (RBC) Count 2.32 mill/uL (4.70-6.10); White Blood Cell (WBC) Count 9.6 10x3/uL (4.8-10.8)
[2022-07-04 05:44] LABS: ALT (SGPT) 9 U/L (8-55); AST (SGOT) 16 U/L (5-34); Albumin 2.3 g/dL (3.4-4.8); Alkaline Phosphatase 52 U/L (40-110); Anion Gap 9 mmol/L (10-20); BUN (Urea Nitrogen) 20 mg/dL (8.4-25.7); Bilirubin, Total 0.8 mg/dL (0.2-1.2); Calc. Creatinine Clearance 73 mL/min (70-130); Calcium 7.9 mg/dL (7.8-10.44); Carbon Dioxide 28 mmol/L (23-31); Chloride 106 mmol/L (98-107); Estimated GFR 95; Globulin 3.2 g/dL (2.4-3.5); Glucose 171 mg/dL (83-110); Magnesium 1.9 mg/dL (1.6-2.6); Protein, Total 5.5 g/dL (5.8-8.1); Sodium 139 mmol/L (136-145)
[2022-07-04 06:06] LABS: Phosphorus 2.2 mg/dL (2.3-4.7)
[2022-07-04] MEDS: Meropenem 1 GM in Sodium Chloride 0.9% 100 ML IVPB SCH ×3 (06:33→22:57)
[2022-07-04] MEDS ORDERED: Magnesium 2 GM/50 ML(in water) 2 GM in Premix Bag 1 BAG IVPB SCH (06:45)
[2022-07-04] MEDS: Budesonide 0.5 MG/2 ML NEB NEB SCH ×2 (06:50→18:22)
[2022-07-04 08:06] LABS: Hemoglobin 7.2 g/dL (14.0-18.0); Platelet Count 242 10x3/uL (130-400)
[2022-07-04] MEDS ORDERED: Enoxaparin Sodium 40 MG/0.4 ML SYRINGE SC SCH (09:30)
[2022-07-04] MEDS: Polyethylene Glycol 3350 17 GM Packet PO SCH (11:13)
[2022-07-04] MEDS: Senokot S 8.6-50 MG TAB PO SCH ×2 (11:13→20:30)
[2022-07-04] MEDS: Multivitamins, Adult 10 ML, TRACE ELEMENT CONCENTRATE 1 ML in D15W-AA 5% with Lytes 2,0... IV SCH (18:07)
[2022-07-04] MEDS: Enoxaparin Sodium 40 MG/0.4 ML SYRINGE SC SCH (20:29)
[2022-07-05] MEDS: Meropenem 1 GM in Sodium Chloride 0.9% 100 ML IVPB SCH ×3 (04:36→22:03)
[2022-07-05] MEDS: Acetaminophen 500 MG TAB PO SCH ×4 (05:36→23:58)
[2022-07-05] MEDS: Budesonide 0.5 MG/2 ML NEB NEB SCH ×2 (06:30→18:51)
[2022-07-05 08:30] LABS: #Eosinphils 0.2 thou/uL (0.0-0.7); #Lymphocytes 1.5 thou/uL (1.20-3.40); #Monocytes 0.5 thou/uL (0.11-0.59); #Neutrophils 10.7 thou/uL (1.40-6.50); %Basophils 0.1 % (0.0-1.0); %Eosinophils 1.7 % (0.0-10.0); %Lymphocytes 11.4 % (21.0-51.0); %Monocytes 3.9 % (0.0-10.0); Hemoglobin 9.5 g/dL (14.0-18.0); Mean Corpuscular HGB CONC 33.1 g/dL (32.0-36.0); Mean Corpuscular Hemoglobin 31.9 pg (27.0-31.0); Mean Corpuscular Volume 96.6 fl (78.0-98.0); Mean Platelet Volume 7.4 fL (7.4-10.4); Platelet Count 259 10x3/uL (130-400); RBC Distribution Width 15.5 % (11.5-14.5); Red Blood Cell (RBC) Count 2.98 mill/uL (4.70-6.10); White Blood Cell (WBC) Count 12.9 10x3/uL (4.8-10.8)
[2022-07-05 08:52] LABS: ALT (SGPT) 11 U/L (8-55); AST (SGOT) 20 U/L (5-34); Albumin 2.3 g/dL (3.4-4.8); Alkaline Phosphatase 70 U/L (40-110); Anion Gap 8 mmol/L (10-20); BUN (Urea Nitrogen) 19 mg/dL (8.4-25.7); Bilirubin, Total 0.8 mg/dL (0.2-1.2); Calc. Creatinine Clearance 77 mL/min (70-130); Carbon Dioxide 27 mmol/L (23-31); Chloride 105 mmol/L (98-107); Estimated GFR 96; Globulin 3.7 g/dL (2.4-3.5); Glucose 108 mg/dL (83-110); Sodium 136 mmol/L (136-145)
[2022-07-05] MEDS: Senokot S 8.6-50 MG TAB PO SCH ×2 (09:05→22:02)
[2022-07-05] MEDS: Polyethylene Glycol 3350 17 GM Packet PO SCH (09:06)
[2022-07-05] MEDS: Enoxaparin Sodium 40 MG/0.4 ML SYRINGE SC SCH ×2 (09:06→22:03)
[2022-07-05] MEDS ORDERED: hydrOXYzine 10 MG TAB PO PRN (10:33)
[2022-07-05] MEDS: Multivitamins, Adult 10 ML, TRACE ELEMENT CONCENTRATE 1 ML in D15W-AA 5% with Lytes 2,0... IV SCH (17:59)
[2022-07-06] MEDS: Acetaminophen 500 MG TAB PO SCH ×3 (05:20→18:10)
[2022-07-06] MEDS: Meropenem 1 GM in Sodium Chloride 0.9% 100 ML IVPB SCH (05:22)
[2022-07-06 05:31] LABS: #Eosinphils 0.2 thou/uL (0.0-0.7); #Lymphocytes 1.8 thou/uL (1.20-3.40); #Monocytes 0.5 thou/uL (0.11-0.59); #Neutrophils 8.8 thou/uL (1.40-6.50); %Basophils 0.1 % (0.0-1.0); %Eosinophils 2.1 % (0.0-10.0); %Lymphocytes 15.7 % (21.0-51.0); %Monocytes 4.6 % (0.0-10.0); %Neutrophils 77.6 % (42.0-75.0); Hemoglobin 8.6 g/dL (14.0-18.0); Mean Corpuscular Hemoglobin 30.4 pg (27.0-31.0); Mean Corpuscular Volume 95.2 fl (78.0-98.0); Mean Platelet Volume 7.3 fL (7.4-10.4); Platelet Count 266 10x3/uL (130-400); RBC Distribution Width 15.9 % (11.5-14.5); Red Blood Cell (RBC) Count 2.82 mill/uL (4.70-6.10); White Blood Cell (WBC) Count 11.4 10x3/uL (4.8-10.8)
[2022-07-06 05:58] LABS: ALT (SGPT) 14 U/L (8-55); AST (SGOT) 22 U/L (5-34); Albumin 2.4 g/dL (3.4-4.8); Alkaline Phosphatase 73 U/L (40-110); Anion Gap 9 mmol/L (10-20); BUN (Urea Nitrogen) 16 mg/dL (8.4-25.7); Bilirubin, Total 0.7 mg/dL (0.2-1.2); Calc. Creatinine Clearance 82 mL/min (70-130); Calcium 8.1 mg/dL (7.8-10.44); Carbon Dioxide 23 mmol/L (23-31); Chloride 104 mmol/L (98-107); Estimated GFR 98; Globulin 3.7 g/dL (2.4-3.5); Glucose 116 mg/dL (83-110); Protein, Total 6.1 g/dL (5.8-8.1); Sodium 132 mmol/L (136-145)
[2022-07-06] MEDS: Budesonide 0.5 MG/2 ML NEB NEB SCH ×2 (06:46→18:27)
[2022-07-06] MEDS: Losartan 25 MG TAB PO SCH (09:02)
[2022-07-06] MEDS: Enoxaparin Sodium 40 MG/0.4 ML SYRINGE SC SCH (09:02)
[2022-07-06] MEDS: Senokot S 8.6-50 MG TAB PO SCH ×2 (09:03→20:46)
[2022-07-06] MEDS: Polyethylene Glycol 3350 17 GM Packet PO SCH (09:03)
[2022-07-06] MEDS ORDERED: Furosemide 20 MG/2 ML VIAL SLOW IVP SCH (10:00)
[2022-07-06] MEDS: Multivitamins, Adult 10 ML, TRACE ELEMENT CONCENTRATE 1 ML in D15W-AA 5% with Lytes 2,0... IV SCH (15:47)
[2022-07-06] MEDS: Amoxicillin/Potassium Clav 875 MG TAB PO SCH (20:46)
[2022-07-06] MEDS: Apixaban 5 MG TAB PO SCH (20:46)
[2022-07-07] MEDS: Acetaminophen 500 MG TAB PO SCH ×5 (00:02→23:59)
[2022-07-07 06:03] LABS: ALT (SGPT) 29 U/L (8-55); AST (SGOT) 41 U/L (5-34); Albumin 2.6 g/dL (3.4-4.8); Alkaline Phosphatase 87 U/L (40-110); Anion Gap 10 mmol/L (10-20); BUN (Urea Nitrogen) 19 mg/dL (8.4-25.7); Bilirubin, Total 0.7 mg/dL (0.2-1.2); Calc. Creatinine Clearance 83 mL/min (70-130); Calcium 8.5 mg/dL (7.8-10.44); Carbon Dioxide 25 mmol/L (23-31); Chloride 102 mmol/L (98-107); Estimated GFR 99; Globulin 3.9 g/dL (2.4-3.5); Glucose 94 mg/dL (83-110); Potassium 4.2 mmol/L (3.5-5.1); Protein, Total 6.5 g/dL (5.8-8.1); Sodium 133 mmol/L (136-145)
[2022-07-07] MEDS: Budesonide 0.5 MG/2 ML NEB NEB SCH ×2 (06:58→18:09)
[2022-07-07] MEDS: Apixaban 5 MG TAB PO SCH ×2 (10:07→22:13)
[2022-07-07] MEDS: Polyethylene Glycol 3350 17 GM Packet PO SCH (10:08)
[2022-07-07] MEDS: Amoxicillin/Potassium Clav 875 MG TAB PO SCH ×2 (10:08→22:13)
[2022-07-07] MEDS: Senokot S 8.6-50 MG TAB PO SCH ×2 (10:08→22:13)
[2022-07-07] MEDS: Losartan 25 MG TAB PO SCH (10:08)
[2022-07-07 10:52] LABS: Eosinophils 2 % (0-10); Lymphocytes 18 % (21-51); MDiff Complete? YES; Mean Corpuscular HGB CONC 32.3 g/dL (32.0-36.0); Mean Corpuscular Hemoglobin 30.6 pg (27.0-31.0); Mean Corpuscular Volume 94.5 fl (78.0-98.0); Mean Platelet Volume 7.4 fL (7.4-10.4); Monocytes 6 % (0-10); Neutrophil 74 % (42-75); Platelet Count 277 10x3/uL (130-400); Platelet Morphology Comment Appears Adequate; RBC Distribution Width 15.9 % (11.5-14.5); RBC Morphology Normal; Red Blood Cell (RBC) Count 2.93 mill/uL (4.70-6.10); White Blood Cell (WBC) Count 8.7 10x3/uL (4.8-10.8)
[2022-07-07] MEDS: Multivitamins, Adult 10 ML, TRACE ELEMENT CONCENTRATE 1 ML in D15W-AA 5% with Lytes 2,0... IV SCH (14:41)
[2022-07-08] MEDS: Acetaminophen 500 MG TAB PO SCH ×3 (05:33→17:36)
[2022-07-08 06:16] LABS: #Eosinphils 0.3 thou/uL (0.0-0.7); #Lymphocytes 1.7 thou/uL (1.20-3.40); #Monocytes 0.7 thou/uL (0.11-0.59); #Neutrophils 6.4 thou/uL (1.40-6.50); %Basophils 0.5 % (0.0-1.0); %Eosinophils 3.6 % (0.0-10.0); %Lymphocytes 18.9 % (21.0-51.0); %Monocytes 7.8 % (0.0-10.0); %Neutrophils 69.2 % (42.0-75.0); Hemoglobin 8.9 g/dL (14.0-18.0); Mean Corpuscular HGB CONC 33.2 g/dL (32.0-36.0); Mean Corpuscular Hemoglobin 31.4 pg (27.0-31.0); Mean Corpuscular Volume 94.6 fl (78.0-98.0); Mean Platelet Volume 7.7 fL (7.4-10.4); Platelet Count 280 10x3/uL (130-400); Red Blood Cell (RBC) Count 2.84 mill/uL (4.70-6.10); White Blood Cell (WBC) Count 9.2 10x3/uL (4.8-10.8)
[2022-07-08 06:41] LABS: ALT (SGPT) 37 U/L (8-55); AST (SGOT) 42 U/L (5-34); Albumin 2.6 g/dL (3.4-4.8); Alkaline Phosphatase 91 U/L (40-110); Anion Gap 11 mmol/L (10-20); BUN (Urea Nitrogen) 17 mg/dL (8.4-25.7); Bilirubin, Total 0.5 mg/dL (0.2-1.2); Calc. Creatinine Clearance 80 mL/min (70-130); Calcium 8.4 mg/dL (7.8-10.44); Carbon Dioxide 23 mmol/L (23-31); Chloride 101 mmol/L (98-107); Estimated GFR 101; Globulin 4.1 g/dL (2.4-3.5); Glucose 86 mg/dL (83-110); Potassium 4.1 mmol/L (3.5-5.1); Protein, Total 6.7 g/dL (5.8-8.1); Sodium 131 mmol/L (136-145)
[2022-07-08] MEDS: Budesonide 0.5 MG/2 ML NEB NEB SCH ×2 (06:45→21:02)
[2022-07-08] MEDS: Senokot S 8.6-50 MG TAB PO SCH ×2 (09:17→22:36)
[2022-07-08] MEDS: Polyethylene Glycol 3350 17 GM Packet PO SCH (09:17)
[2022-07-08] MEDS: Amoxicillin/Potassium Clav 875 MG TAB PO SCH ×2 (09:23→22:21)
[2022-07-08] MEDS: Apixaban 5 MG TAB PO SCH ×2 (09:24→22:15)
[2022-07-08] MEDS: Losartan 25 MG TAB PO SCH (09:24)
[2022-07-08] MEDS: Multivitamins, Adult 10 ML, TRACE ELEMENT CONCENTRATE 1 ML in D15W-AA 5% with Lytes 2,0... IV SCH (14:05)
[2022-07-09] MEDS: Acetaminophen 500 MG TAB PO SCH ×4 (00:43→21:17)
[2022-07-09 05:25] LABS: #Basophils 0.1 thou/uL (0.0-0.2); #Eosinphils 0.4 thou/uL (0.0-0.7); #Monocytes 0.8 thou/uL (0.11-0.59); #Neutrophils 6.7 thou/uL (1.40-6.50); %Basophils 0.6 % (0.0-1.0); %Eosinophils 3.6 % (0.0-10.0); %Lymphocytes 19.7 % (21.0-51.0); %Monocytes 8.5 % (0.0-10.0); %Neutrophils 67.6 % (42.0-75.0); Hemoglobin 8.7 g/dL (14.0-18.0); Mean Corpuscular HGB CONC 32.3 g/dL (32.0-36.0); Mean Corpuscular Hemoglobin 30.4 pg (27.0-31.0); Mean Corpuscular Volume 94.3 fl (78.0-98.0); Mean Platelet Volume 7.4 fL (7.4-10.4); Platelet Count 306 10x3/uL (130-400); RBC Distribution Width 15.9 % (11.5-14.5); Red Blood Cell (RBC) Count 2.85 mill/uL (4.70-6.10); White Blood Cell (WBC) Count 9.9 10x3/uL (4.8-10.8)
[2022-07-09 05:41] LABS: Phosphorus 3.7 mg/dL (2.3-4.7)
[2022-07-09 05:48] LABS: ALT (SGPT) 88 U/L (8-55); AST (SGOT) 94 U/L (5-34); Albumin 2.6 g/dL (3.4-4.8); Alkaline Phosphatase 106 U/L (40-110); Anion Gap 12 mmol/L (10-20); BUN (Urea Nitrogen) 20 mg/dL (8.4-25.7); Bilirubin, Total 0.5 mg/dL (0.2-1.2); Calc. Creatinine Clearance 76 mL/min (70-130); Calcium 8.6 mg/dL (7.8-10.44); Carbon Dioxide 24 mmol/L (23-31); Chloride 99 mmol/L (98-107); Estimated GFR 99; Globulin 4.6 g/dL (2.4-3.5); Glucose 94 mg/dL (83-110); Magnesium 1.7 mg/dL (1.6-2.6); Potassium 4.6 mmol/L (3.5-5.1); Protein, Total 7.2 g/dL (5.8-8.1); Sodium 130 mmol/L (136-145)
[2022-07-09] MEDS ORDERED: Sodium Chloride 1 GM TAB PO SCH (07:15)
[2022-07-09] MEDS: Budesonide 0.5 MG/2 ML NEB NEB SCH ×2 (07:24→20:25)
[2022-07-09] MEDS ORDERED: Lactated Ringer's 1,000 ML IV SCH (07:45)
[2022-07-09] MEDS ORDERED: Magnesium 2 GM/50 ML(in water) 2 GM in Premix Bag 1 BAG IVPB SCH (08:00)
[2022-07-09] MEDS: Apixaban 5 MG TAB PO SCH ×2 (08:23→21:26)
[2022-07-09] MEDS: Losartan 25 MG TAB PO SCH (08:23)
[2022-07-09] MEDS: Polyethylene Glycol 3350 17 GM Packet PO SCH (08:24)
[2022-07-09] MEDS: Senokot S 8.6-50 MG TAB PO SCH ×2 (08:24→21:29)
[2022-07-09] MEDS: Amoxicillin/Potassium Clav 875 MG TAB PO SCH ×2 (08:26→21:29)
[2022-07-09 09:00] LABS: Cardiac Risk 4.6 (Less than 4.5)
[2022-07-09] MEDS: Sodium Chloride 1 GM TAB PO SCH ×2 (15:13→21:29)
[2022-07-09] MEDS: Multivitamins, Adult 10 ML, TRACE ELEMENT CONCENTRATE 1 ML in D15W-AA 5% with Lytes 2,0... IV SCH (21:21)
[2022-07-10] MEDS: Acetaminophen 500 MG TAB PO SCH ×4 (00:01→17:32)
[2022-07-10 05:07] LABS: #Eosinphils 0.4 thou/uL (0.0-0.7); #Lymphocytes 1.7 thou/uL (1.20-3.40); #Monocytes 0.8 thou/uL (0.11-0.59); #Neutrophils 5.5 thou/uL (1.40-6.50); %Basophils 0.5 % (0.0-1.0); %Eosinophils 5.1 % (0.0-10.0); %Lymphocytes 20.3 % (21.0-51.0); %Monocytes 9.2 % (0.0-10.0); %Neutrophils 64.9 % (42.0-75.0); Hemoglobin 8.9 g/dL (14.0-18.0); Mean Corpuscular Hemoglobin 28.9 pg (27.0-31.0); Mean Corpuscular Volume 93.3 fl (78.0-98.0); Mean Platelet Volume 7.4 fL (7.4-10.4); Platelet Count 286 10x3/uL (130-400); RBC Distribution Width 15.9 % (11.5-14.5); Red Blood Cell (RBC) Count 3.06 mill/uL (4.70-6.10); White Blood Cell (WBC) Count 8.4 10x3/uL (4.8-10.8)
[2022-07-10 05:27] LABS: ALT (SGPT) 167 U/L (8-55); AST (SGOT) 154 U/L (5-34); Albumin 2.6 g/dL (3.4-4.8); Alkaline Phosphatase 130 U/L (40-110); Anion Gap 10 mmol/L (10-20); BUN (Urea Nitrogen) 22 mg/dL (8.4-25.7); Bilirubin, Total 0.5 mg/dL (0.2-1.2); Calc. Creatinine Clearance 76 mL/min (70-130); Calcium 8.6 mg/dL (7.8-10.44); Carbon Dioxide 25 mmol/L (23-31); Chloride 100 mmol/L (98-107); Estimated GFR 99; Globulin 4.6 g/dL (2.4-3.5); Glucose 93 mg/dL (83-110); Magnesium 1.9 mg/dL (1.6-2.6); Potassium 4.6 mmol/L (3.5-5.1); Protein, Total 7.2 g/dL (5.8-8.1); Sodium 130 mmol/L (136-145)
[2022-07-10] MEDS: Sodium Chloride 1 GM TAB PO SCH ×3 (05:49→21:35)
[2022-07-10] MEDS: Budesonide 0.5 MG/2 ML NEB NEB SCH ×2 (07:02→19:53)
[2022-07-10] MEDS ORDERED: Magnesium 2 GM/50 ML(in water) 2 GM in Premix Bag 1 BAG IVPB SCH (08:00)
[2022-07-10] MEDS: Polyethylene Glycol 3350 17 GM Packet PO SCH (08:21)
[2022-07-10] MEDS: Losartan 25 MG TAB PO SCH (08:21)
[2022-07-10] MEDS: Amoxicillin/Potassium Clav 875 MG TAB PO SCH ×2 (08:21→21:35)
[2022-07-10] MEDS: Apixaban 5 MG TAB PO SCH ×2 (08:21→21:35)
[2022-07-10] MEDS: Senokot S 8.6-50 MG TAB PO SCH ×2 (08:21→21:35)
[2022-07-10 19:06] LABS: ALT (SGPT) 219 U/L (8-55); AST (SGOT) 191 U/L (5-34); Albumin 2.8 g/dL (3.4-4.8); Alkaline Phosphatase 127 U/L (40-110); Anion Gap 13 mmol/L (10-20); BUN (Urea Nitrogen) 25 mg/dL (8.4-25.7); Bilirubin, Total 0.5 mg/dL (0.2-1.2); Calc. Creatinine Clearance 71 mL/min (70-130); Calcium 8.7 mg/dL (7.8-10.44); Carbon Dioxide 22 mmol/L (23-31); Chloride 100 mmol/L (98-107); Estimated GFR 97; Globulin 4.6 g/dL (2.4-3.5); Glucose 95 mg/dL (83-110); Potassium 4.7 mmol/L (3.5-5.1); Protein, Total 7.4 g/dL (5.8-8.1); Sodium 130 mmol/L (136-145)
[2022-07-10 19:09] LABS: Troponin I Less than 0.010 ng/mL (< 0.028)
[2022-07-10] MEDS: Multivitamins, Adult 10 ML, TRACE ELEMENT CONCENTRATE 1 ML in D15W-AA 5% with Lytes 2,0... IV SCH (21:30)
[2022-07-10] MEDS: Mirtazapine 15 MG Soltab PO SCH (21:35)
[2022-07-11] MEDS: Acetaminophen 500 MG TAB PO SCH ×5 (00:06→23:57)
[2022-07-11] MEDS ORDERED: Magnesium 2 GM/50 ML(in water) 2 GM in Premix Bag 1 BAG IVPB SCH (01:15)
[2022-07-11] MEDS: Budesonide 0.5 MG/2 ML NEB NEB SCH ×2 (06:16→18:37)
[2022-07-11] MEDS: Sodium Chloride 1 GM TAB PO SCH ×3 (06:33→20:21)
[2022-07-11 06:54] LABS: #Basophils 0.1 thou/uL (0.0-0.2); #Eosinphils 0.4 thou/uL (0.0-0.7); #Lymphocytes 1.9 thou/uL (1.20-3.40); #Monocytes 0.9 thou/uL (0.11-0.59); #Neutrophils 4.7 thou/uL (1.40-6.50); %Basophils 0.7 % (0.0-1.0); %Eosinophils 5.2 % (0.0-10.0); %Lymphocytes 23.3 % (21.0-51.0); %Monocytes 11.8 % (0.0-10.0); %Neutrophils 59.1 % (42.0-75.0); Hemoglobin 9.9 g/dL (14.0-18.0); Mean Corpuscular HGB CONC 32.6 g/dL (32.0-36.0); Mean Corpuscular Hemoglobin 30.3 pg (27.0-31.0); Mean Corpuscular Volume 92.9 fl (78.0-98.0); Mean Platelet Volume 7.1 fL (7.4-10.4); Platelet Count 328 10x3/uL (130-400); Red Blood Cell (RBC) Count 3.26 mill/uL (4.70-6.10)
[2022-07-11 07:17] LABS: ALT (SGPT) 298 U/L (8-55); AST (SGOT) 244 U/L (5-34); Albumin 2.8 g/dL (3.4-4.8); Alkaline Phosphatase 139 U/L (40-110); Anion Gap 12 mmol/L (10-20); BUN (Urea Nitrogen) 26 mg/dL (8.4-25.7); Bilirubin, Total 0.5 mg/dL (0.2-1.2); Calc. Creatinine Clearance 67 mL/min (70-130); Calcium 8.8 mg/dL (7.8-10.44); Carbon Dioxide 23 mmol/L (23-31); Chloride 99 mmol/L (98-107); Estimated GFR 96; Globulin 4.9 g/dL (2.4-3.5); Glucose 99 mg/dL (83-110); Magnesium 2.5 mg/dL (1.6-2.6); Potassium 4.9 mmol/L (3.5-5.1); Protein, Total 7.7 g/dL (5.8-8.1); Sodium 129 mmol/L (136-145)
[2022-07-11] MEDS ORDERED: Furosemide 20 MG/2 ML VIAL SLOW IVP SCH (09:30)
[2022-07-11] MEDS: Apixaban 5 MG TAB PO SCH ×2 (10:05→20:21)
[2022-07-11] MEDS: Amoxicillin/Potassium Clav 875 MG TAB PO SCH (10:05)
[2022-07-11] MEDS: Polyethylene Glycol 3350 17 GM Packet PO SCH (10:06)
[2022-07-11] MEDS: Senokot S 8.6-50 MG TAB PO SCH ×2 (10:06→20:21)
[2022-07-11] MEDS: Losartan 25 MG TAB PO SCH (10:06)
[2022-07-11] MEDS: Clindamycin 150 MG CAP PO SCH ×2 (12:23→20:21)
[2022-07-11] MEDS ORDERED: Multivitamins, Adult 10 ML, TRACE ELEMENT CONCENTRATE 1 ML, Fat Emulsion 250 ML in D15W... IV SCH (20:00)
[2022-07-11] MEDS: Mirtazapine 15 MG Soltab PO SCH (20:21)
[2022-07-12 03:51] VITALS: BMI 18.0
[2022-07-12] MEDS: Acetaminophen 500 MG TAB PO SCH ×5 (05:13→23:38)
[2022-07-12] MEDS: Sodium Chloride 1 GM TAB PO SCH ×3 (05:13→20:35)
[2022-07-12] MEDS: Clindamycin 150 MG CAP PO SCH ×3 (05:13→20:35)
[2022-07-12 06:08] LABS: #Basophils 0.1 thou/uL (0.0-0.2); #Eosinphils 0.4 thou/uL (0.0-0.7); #Lymphocytes 1.9 thou/uL (1.20-3.40); #Monocytes 0.8 thou/uL (0.11-0.59); #Neutrophils 4.8 thou/uL (1.40-6.50); %Basophils 0.9 % (0.0-1.0); %Eosinophils 5.3 % (0.0-10.0); %Lymphocytes 23.9 % (21.0-51.0); %Monocytes 10.4 % (0.0-10.0); %Neutrophils 59.5 % (42.0-75.0); Hemoglobin 9.5 g/dL (14.0-18.0); Mean Corpuscular HGB CONC 32.6 g/dL (32.0-36.0); Mean Corpuscular Hemoglobin 30.2 pg (27.0-31.0); Mean Corpuscular Volume 92.6 fl (78.0-98.0); Mean Platelet Volume 7.3 fL (7.4-10.4); Platelet Count 316 10x3/uL (130-400); RBC Distribution Width 16.4 % (11.5-14.5); Red Blood Cell (RBC) Count 3.15 mill/uL (4.70-6.10); White Blood Cell (WBC) Count 8.1 10x3/uL (4.8-10.8)
[2022-07-12 06:31] LABS: ALT (SGPT) 333 U/L (8-55); AST (SGOT) 223 U/L (5-34); Albumin 2.8 g/dL (3.4-4.8); Alkaline Phosphatase 162 U/L (40-110); Anion Gap 10 mmol/L (10-20); BUN (Urea Nitrogen) 27 mg/dL (8.4-25.7); Bilirubin, Total 0.5 mg/dL (0.2-1.2); Calc. Creatinine Clearance 60 mL/min (70-130); Calcium 8.6 mg/dL (7.8-10.44); Carbon Dioxide 26 mmol/L (23-31); Chloride 101 mmol/L (98-107); Estimated GFR 94; Globulin 4.8 g/dL (2.4-3.5); Glucose 90 mg/dL (83-110); Potassium 4.8 mmol/L (3.5-5.1); Protein, Total 7.6 g/dL (5.8-8.1); Sodium 132 mmol/L (136-145)
[2022-07-12] MEDS: Budesonide 0.5 MG/2 ML NEB NEB SCH ×2 (08:17→18:35)
[2022-07-12] MEDS: Saccharomyces boulardii 250 MG CAP PO SCH (08:29)
[2022-07-12] MEDS: Apixaban 5 MG TAB PO SCH ×2 (08:29→20:35)
[2022-07-12] MEDS: Senokot S 8.6-50 MG TAB PO SCH ×2 (08:29→20:35)
[2022-07-12] MEDS: Losartan 25 MG TAB PO SCH (08:29)
[2022-07-12] MEDS: Polyethylene Glycol 3350 17 GM Packet PO SCH (08:29)
[2022-07-12] MEDS: Mirtazapine 15 MG Soltab PO SCH (20:35)
[2022-07-13] MEDS: Acetaminophen 500 MG TAB PO SCH (05:21)
[2022-07-13] MEDS: Sodium Chloride 1 GM TAB PO SCH (05:21)
[2022-07-13] MEDS: Clindamycin 150 MG CAP PO SCH (05:21)
[2022-07-13 06:35] LABS: #Basophils 0.1 thou/uL (0.0-0.2); #Eosinphils 0.5 thou/uL (0.0-0.7); #Neutrophils 4.5 thou/uL (1.40-6.50); %Basophils 0.9 % (0.0-1.0); %Eosinophils 5.8 % (0.0-10.0); %Lymphocytes 24.8 % (21.0-51.0); %Monocytes 12.1 % (0.0-10.0); %Neutrophils 56.4 % (42.0-75.0); Hemoglobin 8.7 g/dL (14.0-18.0); Mean Corpuscular HGB CONC 32.6 g/dL (32.0-36.0); Mean Corpuscular Volume 92.1 fl (78.0-98.0); Platelet Count 312 10x3/uL (130-400); RBC Distribution Width 16.3 % (11.5-14.5); Red Blood Cell (RBC) Count 2.88 mill/uL (4.70-6.10); White Blood Cell (WBC) Count 7.9 10x3/uL (4.8-10.8)
[2022-07-13 07:01] LABS: ALT (SGPT) 209 U/L (8-55); AST (SGOT) 81 U/L (5-34); Albumin 2.7 g/dL (3.4-4.8); Alkaline Phosphatase 146 U/L (40-110); Anion Gap 11 mmol/L (10-20); BUN (Urea Nitrogen) 22 mg/dL (8.4-25.7); Bilirubin, Total 0.5 mg/dL (0.2-1.2); Calc. Creatinine Clearance 61 mL/min (70-130); Calcium 8.7 mg/dL (7.8-10.44); Carbon Dioxide 23 mmol/L (23-31); Chloride 104 mmol/L (98-107); Estimated GFR 94; Globulin 4.9 g/dL (2.4-3.5); Glucose 104 mg/dL (83-110); Potassium 4.3 mmol/L (3.5-5.1); Protein, Total 7.6 g/dL (5.8-8.1); Sodium 134 mmol/L (136-145)
[2022-07-13] MEDS: Budesonide 0.5 MG/2 ML NEB NEB SCH (07:24)
[2022-07-13] MEDS: Losartan 25 MG TAB PO SCH (08:49)
[2022-07-13] MEDS: Senokot S 8.6-50 MG TAB PO SCH (08:49)
[2022-07-13] MEDS: Polyethylene Glycol 3350 17 GM Packet PO SCH (08:50)
[2022-07-13] MEDS: Saccharomyces boulardii 250 MG CAP PO SCH (08:50)
[2022-07-13] MEDS: Apixaban 5 MG TAB PO SCH (08:50)
[2022-07-13 09:59] VITALS: TEMP 98.5
[2022-07-13 13:51] VITALS: BP 107/71
[2022-07-13] MEDS ORDERED: Apixaban 5 MG TAB PO SCH (21:00)
== END 2022-07-13 14:50 | disposition home or self-care (01) | DRG 853 ==
LOC: SURG A 21:22 → CCU 06-26 06:54 → IMCU/EMU 06-29 16:25 → CCU 07-02 11:56 → IMCU/EMU 07-05 02:19 → SURG A 07-05 17:35
PROVIDERS: ADMIT Physician Assistant Medical; ATTEND Surgery
PROC: 02HV33Z Insertion of Infusion Device into Superior Vena Cava, Percutaneous Approach (ICD-10-PCS; 2022-06-27)
PROC: 0W9B3ZZ Drainage of Left Pleural Cavity, Percutaneous Approach (ICD-10-PCS; 2022-06-30)
PROC: 0W993ZZ Drainage of Right Pleural Cavity, Percutaneous Approach (ICD-10-PCS; 2022-06-30)
PROC: 0DNW0ZZ Release Peritoneum, Open Approach (ICD-10-PCS; principal; 2022-07-02)
PROC: 0D9670Z Drainage of Stomach with Drainage Device, Via Natural or Artificial Opening (ICD-10-PCS; 2022-07-02)
PROC: 0DTJ0ZZ Resection of Appendix, Open Approach (ICD-10-PCS; 2022-07-02)
PROC: 3E03329 Introduction of Other Anti-infective into Peripheral Vein, Percutaneous Approach (ICD-10-PCS; 2022-07-02)
PROC: 30233N1 Transfusion of Nonautologous Red Blood Cells into Peripheral Vein, Percutaneous Approach (ICD-10-PCS; 2022-07-04)
DX: A41.9 Sepsis, unspecified organism (principal); G93.41 Metabolic encephalopathy; J86.9 Pyothorax without fistula; J96.01 Acute respiratory failure with hypoxia; I26.99 Other pulmonary embolism without acute cor pulmonale; J85.1 Abscess of lung with pneumonia; J69.0 Pneumonitis due to inhalation of food and vomit; K56.51 Intestinal adhesions [bands], with partial obstruction; I50.32 Chronic diastolic (congestive) heart failure; N17.9 Acute kidney failure, unspecified; E87.1 Hypo-osmolality and hyponatremia; I82.403 Acute embolism and thrombosis of unspecified deep veins of lower extremity, bilateral; D62 Acute posthemorrhagic anemia; J90 Pleural effusion, not elsewhere classified; E46 Unspecified protein-calorie malnutrition; Z68.1 Body mass index [BMI] 19.9 or less, adult; K56.7 Ileus, unspecified; I11.0 Hypertensive heart disease with heart failure; M10.9 Gout, unspecified; N40.0 Benign prostatic hyperplasia without lower urinary tract symptoms; E78.5 Hyperlipidemia, unspecified; F17.210 Nicotine dependence, cigarettes, uncomplicated; D50.9 Iron deficiency anemia, unspecified; R13.10 Dysphagia, unspecified; I73.9 Peripheral vascular disease, unspecified; Z79.899 Other long term (current) drug therapy; Z51.5 Encounter for palliative care
CPT/HCPCS: 36415; 36416; 36430; 36569; 36600; 71045; 71275; 74018; 74019; 74177; 74250; 75984; 77002; 80053; 80061; 80202; 82805; 83605; 83735; 83880; 84100; 84145; 84484; 85025; 85610; 85730; 86850; 86900; 86901; 87040; 87070; 87205; 88304; 93005; 93010; 93970; 94002; 94640; 94660; C1751; C1776; C9113; J1100; J1644; J1650; J1940; J2185; J2250; J2270; J2370; J2405; J2704; J2710; J3010; J3370; J3475; J3480; J3490; J7030; J7050; J7120; J7620; J7626; P9016; P9047; Q0161; Q9967

== ENCOUNTER 2022-07-26 14:07 | Outpatient (CLI) | payer MEDICARE | END 2022-07-26 14:08 | disposition home or self-care (01) | LOC: RAD 14:07 | PROVIDERS: ATTEND Surgery | DX: Z48.812 Encounter for surgical aftercare following surgery on the circulatory system (principal); R91.8 Other nonspecific abnormal finding of lung field; Z98.890 Other specified postprocedural states | CPT/HCPCS: 71046 ==

== ENCOUNTER 2022-08-02 08:31 | Inpatient (IN) | payer MEDICARE ==
[2022-08-02 09:31] LABS: #Eosinphils 0.1 thou/uL (0.0-0.7); #Lymphocytes 1.7 thou/uL (1.20-3.40); #Monocytes 0.6 thou/uL (0.11-0.59); #Neutrophils 10.7 thou/uL (1.40-6.50); %Basophils 0.1 % (0.0-1.0); %Eosinophils 0.5 % (0.0-10.0); %Lymphocytes 13.2 % (21.0-51.0); %Monocytes 4.6 % (0.0-10.0); %Neutrophils 81.5 % (42.0-75.0); Hemoglobin 10.1 g/dL (14.0-18.0); Mean Corpuscular HGB CONC 32.7 g/dL (32.0-36.0); Mean Corpuscular Hemoglobin 29.3 pg (27.0-31.0); Mean Corpuscular Volume 89.4 fl (78.0-98.0); Mean Platelet Volume 6.9 fL (7.4-10.4); Platelet Count 330 10x3/uL (130-400); RBC Distribution Width 17.7 % (11.5-14.5); Red Blood Cell (RBC) Count 3.44 mill/uL (4.70-6.10); White Blood Cell (WBC) Count 13.1 10x3/uL (4.8-10.8)
[2022-08-02 09:46] LABS: ALT (SGPT) 31 U/L (8-55); AST (SGOT) 17 U/L (5-34); Alkaline Phosphatase 99 U/L (40-110); Anion Gap 13 mmol/L (10-20); BUN (Urea Nitrogen) 7 mg/dL (8.4-25.7); Bilirubin, Total 0.8 mg/dL (0.2-1.2); CK (CPK) 27 U/L (30-200); Calc. Creatinine Clearance 0 mL/min (70-130); Calcium 9.6 mg/dL (7.8-10.44); Carbon Dioxide 26 mmol/L (23-31); Chloride 98 mmol/L (98-107); Estimated GFR 99; Globulin 4.8 g/dL (2.4-3.5); Glucose 122 mg/dL (83-110); Lipase 21 U/L (8-78); Potassium 3.7 mmol/L (3.5-5.1); Protein, Total 7.8 g/dL (5.8-8.1); Sodium 133 mmol/L (136-145)
[2022-08-02] MEDS ORDERED: Acetaminophen 650 MG Suppository PR PRN (11:22)
[2022-08-02] MEDS: Sodium Chloride 0.9% 1,000 ML IV SCH (12:23)
[2022-08-02] MEDS ORDERED: Ondansetron PF 4 MG/2 ML Vial ONE (12:24)
[2022-08-02] MEDS: Ondansetron PF 4 MG/2 ML Vial IVP PRN ×2 (12:25→20:29)
[2022-08-02] MEDS: Nicotine 14 MG PATCH TD SCH (12:34)
[2022-08-02 13:42] LABS: SARS-CoV-2 NAA Rapid Test Not Detected (NotDetected)
[2022-08-02 14:02] LABS: Bacteria/HPF None Seen HPF (None Seen); Bilirubin Negative (Negative); Blood, Urine Negative (Negative); Clarity Clear (Clear); Glucose, Urine (Dipstick) Normal (Negative); Ketone, Urine Negative (Negative); Leukocyte Negative Leu/uL (Negative); Nitrite Negative (Negative); Protein, Urine (Dipstick) 30 mg/dL (Neg-Trace); Squamous Epithelial 0-3 HPF (0-3); Urobilinogen Normal mg/dL (Less than 2); pH, Urine 7.5 (5.0-9.0)
[2022-08-02 14:07] LABS: Specific Gravity, Urine 1.054 (1.002-1.036)
[2022-08-02] MEDS ORDERED: Morphine 4 MG/ML VIAL SLOW IVP PRN (14:21)
[2022-08-02 14:27] VITALS: BMI 21.6
[2022-08-02] MEDS ORDERED: MD-Gastroview 120 ML BOT ONE (16:21)
[2022-08-02] MEDS ORDERED: CHLORPROMAZINE HCL 10 MG PO PRN (17:40)
[2022-08-02] MEDS ORDERED: Megestrol Acetate 400 MG/10 ML UDCUP PO SCH (21:00)
[2022-08-02] MEDS ORDERED: Apixaban 5 MG TAB PO SCH (21:00)
[2022-08-02] MEDS ORDERED: Oxybutynin ER 5 MG TAB PO SCH (21:00)
[2022-08-02] MEDS ORDERED: Carvedilol 3.125 MG TAB PO SCH (21:00)
[2022-08-02] MEDS ORDERED: Promethazine HCl 12.5 MG in Sodium Chloride 0.9% 50 ML IVPB PRN (21:50)
[2022-08-02] MEDS ORDERED: Promethazine HCl 12.5 MG in Sodium Chloride 0.9% 50 ML IVPB SCH (22:00)
[2022-08-02] MEDS ORDERED: Sodium Chloride 0.9% 500 ML IV SCH (23:00)
[2022-08-03] MEDS: Sodium Chloride 0.9% 1,000 ML IV SCH ×4 (01:08→20:44)
[2022-08-03 06:12] LABS: #Basophils 0.1 thou/uL (0.0-0.2); #Lymphocytes 2.1 thou/uL (1.20-3.40); #Monocytes 0.8 thou/uL (0.11-0.59); #Neutrophils 11.4 thou/uL (1.40-6.50); %Basophils 0.5 % (0.0-1.0); %Eosinophils 0.3 % (0.0-10.0); %Lymphocytes 14.5 % (21.0-51.0); %Monocytes 5.7 % (0.0-10.0); Hemoglobin 9.4 g/dL (14.0-18.0); Mean Corpuscular HGB CONC 32.4 g/dL (32.0-36.0); Mean Corpuscular Hemoglobin 28.6 pg (27.0-31.0); Mean Corpuscular Volume 88.2 fl (78.0-98.0); Mean Platelet Volume 7.1 fL (7.4-10.4); Platelet Count 332 10x3/uL (130-400); White Blood Cell (WBC) Count 14.5 10x3/uL (4.8-10.8)
[2022-08-03 06:45] LABS: ALT (SGPT) 21 U/L (8-55); AST (SGOT) 11 U/L (5-34); Albumin 2.9 g/dL (3.4-4.8); Alkaline Phosphatase 90 U/L (40-110); Anion Gap 15 mmol/L (10-20); BUN (Urea Nitrogen) 12 mg/dL (8.4-25.7); Bilirubin, Total 0.8 mg/dL (0.2-1.2); Calc. Creatinine Clearance 54 mL/min (70-130); Calcium 9.3 mg/dL (7.8-10.44); Carbon Dioxide 33 mmol/L (23-31); Chloride 99 mmol/L (98-107); Estimated GFR 70; Globulin 4.7 g/dL (2.4-3.5); Glucose 111 mg/dL (83-110); Potassium 3.9 mmol/L (3.5-5.1); Protein, Total 7.6 g/dL (5.8-8.1); Sodium 143 mmol/L (136-145)
[2022-08-03] MEDS ORDERED: Sodium Chloride 0.9% 500 ML IV SCH (06:45)
[2022-08-03 07:46] LABS: Magnesium 1.2 mg/dL (1.6-2.6); Phosphorus 5.4 mg/dL (2.3-4.7)
[2022-08-03] MEDS ORDERED: Magnesium 2 GM/50 ML(in water) 2 GM in Premix Bag 1 BAG IVPB SCH (08:00)
[2022-08-03] MEDS ORDERED: Magnesium Sulfate 4 GM, Potassium Chloride 20 MEQ in Sodium Chloride 0.9% 250 ML 250 ML IVPB SCH (08:15)
[2022-08-03] MEDS ORDERED: Megestrol Acetate 800 MG/20 ML UDCUP PO SCH (09:00)
[2022-08-03] MEDS ORDERED: Tamsulosin HCl 0.4 MG CAP PO SCH (09:00)
[2022-08-03] MEDS ORDERED: CHLORPROMAZINE HCL 10 MG PO SCH (09:00)
[2022-08-03] MEDS ORDERED: Allopurinol 300 MG TAB PO SCH (09:00)
[2022-08-03] MEDS: Ondansetron PF 4 MG/2 ML Vial IVP PRN ×2 (11:43→18:57)
[2022-08-03] MEDS: Nicotine 14 MG PATCH TD SCH (11:46)
[2022-08-03] MEDS ORDERED: Electrolyte Replacement Protocol 1 EACH FS SCH (13:45)
[2022-08-03] MEDS ORDERED: Morphine 4 MG/ML VIAL SLOW IVP PRN (14:00)
[2022-08-03] MEDS ORDERED: Magnesium Sulfate In Water 4 GM in Premix Bag 1 BAG IVPB SCH (14:00)
[2022-08-03] MEDS ORDERED: Electrolyte Replacement Protocol FS PRN (14:00)
[2022-08-03] MEDS ORDERED: Heparin 10,000 UNITS/ 10 ML VIAL SLOW IVP SCH (14:00)
[2022-08-03 14:02] LABS: Hemoglobin 9.8 g/dL (14.0-18.0); Platelet Count 363 10x3/uL (130-400)
[2022-08-03] MEDS: Heparin 25,000 units/D5W 500 ML IVPB SCH (14:38)
[2022-08-03 20:34] LABS: Magnesium 3.9 mg/dL (1.6-2.6)
[2022-08-03] MEDS: Famotidine/PF 20 mg/2ml Vial SLOW IVP SCH (20:43)
[2022-08-04 03:41] LABS: #Eosinphils 0.3 thou/uL (0.0-0.7); #Lymphocytes 2.2 thou/uL (1.20-3.40); #Monocytes 0.7 thou/uL (0.11-0.59); #Neutrophils 6.6 thou/uL (1.40-6.50); %Basophils 0.2 % (0.0-1.0); %Eosinophils 3.2 % (0.0-10.0); %Lymphocytes 22.7 % (21.0-51.0); %Monocytes 7.1 % (0.0-10.0); %Neutrophils 66.8 % (42.0-75.0); Hemoglobin 8.3 g/dL (14.0-18.0); Mean Corpuscular HGB CONC 32.6 g/dL (32.0-36.0); Mean Corpuscular Hemoglobin 29.3 pg (27.0-31.0); Mean Corpuscular Volume 89.8 fl (78.0-98.0); Mean Platelet Volume 6.7 fL (7.4-10.4); Platelet Count 294 10x3/uL (130-400); RBC Distribution Width 17.6 % (11.5-14.5); Red Blood Cell (RBC) Count 2.83 mill/uL (4.70-6.10); White Blood Cell (WBC) Count 9.9 10x3/uL (4.8-10.8)
[2022-08-04 04:01] LABS: ALT (SGPT) 17 U/L (8-55); AST (SGOT) 12 U/L (5-34); Albumin 2.8 g/dL (3.4-4.8); Alkaline Phosphatase 77 U/L (40-110); Anion Gap 14 mmol/L (10-20); BUN (Urea Nitrogen) 18 mg/dL (8.4-25.7); Bilirubin, Total 0.6 mg/dL (0.2-1.2); Calc. Creatinine Clearance 55 mL/min (70-130); Carbon Dioxide 29 mmol/L (23-31); Chloride 106 mmol/L (98-107); Estimated GFR 73; Globulin 4.4 g/dL (2.4-3.5); Glucose 88 mg/dL (83-110); Magnesium 3.2 mg/dL (1.6-2.6); Protein, Total 7.2 g/dL (5.8-8.1); Sodium 145 mmol/L (136-145)
[2022-08-04 04:04] LABS: Phosphorus 3.4 mg/dL (2.3-4.7)
[2022-08-04] MEDS ORDERED: Bisacodyl 10 MG SUPP PR SCH (08:45)
[2022-08-04] MEDS: Nicotine 14 MG PATCH TD SCH (12:39)
[2022-08-04] MEDS: Heparin 25,000 units/D5W 500 ML IVPB SCH (16:32)
[2022-08-04] MEDS: Famotidine/PF 20 mg/2ml Vial SLOW IVP SCH (20:03)
[2022-08-05] MEDS ORDERED: Acetaminophen 325 MG TAB PO PRN (05:30)
[2022-08-05 06:27] LABS: Hemoglobin 7.4 g/dL (14.0-18.0); Mean Corpuscular Hemoglobin 28.6 pg (27.0-31.0); Mean Corpuscular Volume 89.4 fl (78.0-98.0); Platelet Count 263 10x3/uL (130-400); RBC Distribution Width 17.7 % (11.5-14.5); Red Blood Cell (RBC) Count 2.59 mill/uL (4.70-6.10); White Blood Cell (WBC) Count 7.7 10x3/uL (4.8-10.8)
[2022-08-05 06:35] LABS: ALT (SGPT) 13 U/L (8-55); AST (SGOT) 11 U/L (5-34); Albumin 2.5 g/dL (3.4-4.8); Alkaline Phosphatase 71 U/L (40-110); Anion Gap 10 mmol/L (10-20); BUN (Urea Nitrogen) 7 mg/dL (8.4-25.7); Bilirubin, Total 0.5 mg/dL (0.2-1.2); Calc. Creatinine Clearance 82 mL/min (70-130); Calcium 8.4 mg/dL (7.8-10.44); Carbon Dioxide 25 mmol/L (23-31); Chloride 104 mmol/L (98-107); Estimated GFR 97; Globulin 3.9 g/dL (2.4-3.5); Glucose 97 mg/dL (83-110); Magnesium 1.8 mg/dL (1.6-2.6); Potassium 3.3 mmol/L (3.5-5.1); Protein, Total 6.4 g/dL (5.8-8.1); Sodium 136 mmol/L (136-145)
[2022-08-05 06:37] LABS: Phosphorus 2.4 mg/dL (2.3-4.7)
[2022-08-05 07:46] LABS: Eosinophils 8 % (0-10); Lymphocytes 27 % (21-51); MDiff Complete? YES; Monocytes 4 % (0-10); Neutrophil 61 % (42-75); Platelet Morphology Comment Appears Adequate; RBC Morphology Normal
[2022-08-05] MEDS ORDERED: Magnesium 2 GM/50 ML(in water) 2 GM in Premix Bag 1 BAG IVPB SCH (08:30)
[2022-08-05] MEDS ORDERED: Potassium Bicarbonate/Cit Ac 20 MEQ TAB PO SCH (08:30)
[2022-08-05] MEDS: Apixaban 5 MG TAB PO SCH ×2 (09:20→20:41)
[2022-08-05] MEDS: Nicotine 14 MG PATCH TD SCH (12:31)
[2022-08-05] MEDS ORDERED: Tamsulosin HCl 0.4 MG CAP PO SCH (21:00)
[2022-08-06 06:04] LABS: #Eosinphils 0.2 thou/uL (0.0-0.7); #Lymphocytes 2.3 thou/uL (1.20-3.40); #Monocytes 0.5 thou/uL (0.11-0.59); #Neutrophils 3.9 thou/uL (1.40-6.50); %Basophils 0.1 % (0.0-1.0); %Eosinophils 3.4 % (0.0-10.0); %Lymphocytes 33.3 % (21.0-51.0); %Monocytes 6.6 % (0.0-10.0); %Neutrophils 56.6 % (42.0-75.0); Hemoglobin 7.8 g/dL (14.0-18.0); Mean Corpuscular HGB CONC 32.5 g/dL (32.0-36.0); Mean Corpuscular Hemoglobin 28.6 pg (27.0-31.0); Mean Corpuscular Volume 88.1 fl (78.0-98.0); Mean Platelet Volume 7.2 fL (7.4-10.4); Platelet Count 258 10x3/uL (130-400); RBC Distribution Width 17.4 % (11.5-14.5); Red Blood Cell (RBC) Count 2.74 mill/uL (4.70-6.10)
[2022-08-06 06:33] LABS: ALT (SGPT) 13 U/L (8-55); AST (SGOT) 11 U/L (5-34); Albumin 2.6 g/dL (3.4-4.8); Alkaline Phosphatase 82 U/L (40-110); Anion Gap 11 mmol/L (10-20); BUN (Urea Nitrogen) 6 mg/dL (8.4-25.7); Bilirubin, Total 0.7 mg/dL (0.2-1.2); Calc. Creatinine Clearance 83 mL/min (70-130); Calcium 8.8 mg/dL (7.8-10.44); Carbon Dioxide 20 mmol/L (23-31); Estimated GFR 98; Globulin 4.2 g/dL (2.4-3.5); Glucose 89 mg/dL (83-110); Potassium 3.8 mmol/L (3.5-5.1); Protein, Total 6.8 g/dL (5.8-8.1)
[2022-08-06 06:50] LABS: Chloride 103 mmol/L (98-107); Sodium 130 mmol/L (136-145)
[2022-08-06] MEDS ORDERED: Ascorbic Acid 500 mg Chewable Tablet PO SCH (08:00)
[2022-08-06] MEDS ORDERED: Ferrous Sulfate 325 MG TAB PO SCH (08:00)
[2022-08-06 08:44] VITALS: BP 129/76; TEMP 98.2
[2022-08-06] MEDS: Apixaban 5 MG TAB PO SCH (09:15)
[2022-08-06] MEDS: Nicotine 14 MG PATCH TD SCH (10:39)
== END 2022-08-06 11:15 | disposition home or self-care (01) | DRG 389 ==
LOC: ERS 08:31 → ERHOLD 10:28 → T4-A 13:55
PROVIDERS: ADMIT Surgery; ATTEND Internal Medicine
PROC: 0D9670Z Drainage of Stomach with Drainage Device, Via Natural or Artificial Opening (ICD-10-PCS; principal; 2022-08-02)
DX: K56.609 Unspecified intestinal obstruction, unspecified as to partial versus complete obstruction (principal); D62 Acute posthemorrhagic anemia; I27.82 Chronic pulmonary embolism; I50.32 Chronic diastolic (congestive) heart failure; Z20.822 Contact with and (suspected) exposure to COVID-19; E78.5 Hyperlipidemia, unspecified; M10.9 Gout, unspecified; E87.6 Hypokalemia; E83.42 Hypomagnesemia; R53.81 Other malaise; E88.09 Other disorders of plasma-protein metabolism, not elsewhere classified; E83.39 Other disorders of phosphorus metabolism; I11.0 Hypertensive heart disease with heart failure; N40.0 Benign prostatic hyperplasia without lower urinary tract symptoms; Z79.899 Other long term (current) drug therapy; Z95.810 Presence of automatic (implantable) cardiac defibrillator; Z79.01 Long term (current) use of anticoagulants; Z86.718 Personal history of other venous thrombosis and embolism; Z87.891 Personal history of nicotine dependence; Z71.6 Tobacco abuse counseling; Z71.41 Alcohol abuse counseling and surveillance of alcoholic
CPT/HCPCS: 36415; 71045; 71260; 74018; 74177; 74250; 80053; 81003; 81015; 82533; 82550; 83605; 83690; 83735; 83880; 84100; 84484; 85025; 85730; 93005; 96360; 96361; J1644; J2270; J2405; J2550; J3475; J3480; J7030; J7050; Q9963; S0028; U0002

== ENCOUNTER 2022-08-10 13:26 | Inpatient (IN) | payer MEDICARE ==
[~2022-08-10 13:26] MED LIST changes: -Heparin 1,000 UNITS/ML VIAL ONE; +Iopamidol-370 76% 500 ML 1 ML ONE
[2022-08-10] MEDS ORDERED: Amiodarone 150 MG/3 ML VIAL ONE ×3 (13:51→13:55)
[2022-08-10 14:05] LABS: Hemoglobin 10.2 g/dL (14.0-18.0); Mean Corpuscular HGB CONC 30.9 g/dL (32.0-36.0); Mean Corpuscular Hemoglobin 28.5 pg (27.0-31.0); Mean Corpuscular Volume 92.2 fl (78.0-98.0); Mean Platelet Volume 7.7 fL (7.4-10.4); Platelet Count 345 10x3/uL (130-400); RBC Distribution Width 18.3 % (11.5-14.5); Red Blood Cell (RBC) Count 3.59 mill/uL (4.70-6.10)
[2022-08-10 14:25] LABS: Anisocytosis SLIGHT = 6-15 cells (100X) (0-5/hpf); Band 23 % (5-11); Lymphocytes 24 % (21-51); MDiff Complete? YES; Metamyelocyte 12 % (0-0); Monocytes 1 % (0-10); Myelocyte 1 % (0-0); Neutrophil 39 % (42-75); Ovalocytes SLIGHT = 2-5 cells (100X) (0-1/hpf); Platelet Morphology Comment Appears Adequate; Polychromasia SLIGHT = 2-3 cells (100X) (0-2/hpf); Schistocytes SLIGHT = 2-5 cells (100X) (0-1/hpf); Vacuoles SLIGHT
[2022-08-10] MEDS ORDERED: Cefepime 2 GM VIAL ONE (14:35)
[2022-08-10] MEDS ORDERED: Magnesium 2 GM/50 ML BAG (IN WATER) ONE (14:41)
[2022-08-10 14:46] LABS: INR-International Normal Ratio 1.5; PTT 34.5 sec (22.9-36.1); Prothrombin Time 19.1 sec (12.0-14.7)
[2022-08-10 14:47] LABS: CKMB 6.8 ng/mL (0-6.6)
[2022-08-10] MEDS ORDERED: Ondansetron PF 4 MG/2 ML Vial ONE ×2 (14:53→18:16)
[2022-08-10 15:02] LABS: ALT (SGPT) 11 U/L (8-55); AST (SGOT) 17 U/L (5-34); Alkaline Phosphatase 93 U/L (40-110); Anion Gap 30 mmol/L (10-20); BUN (Urea Nitrogen) 18 mg/dL (8.4-25.7); Bilirubin, Total 0.7 mg/dL (0.2-1.2); Calc. Creatinine Clearance 0 mL/min (70-130); Calcium 9.7 mg/dL (7.8-10.44); Carbon Dioxide 18 mmol/L (23-31); Chloride 98 mmol/L (98-107); Estimated GFR 50; Globulin 4.6 g/dL (2.4-3.5); Glucose 155 mg/dL (83-110); Potassium 3.3 mmol/L (3.5-5.1); Protein, Total 7.6 g/dL (5.8-8.1); Sodium 143 mmol/L (136-145)
[2022-08-10] MEDS ORDERED: Vancomycin 1 GM/200 ML (FROZEN) BAG ONE (15:28)
[2022-08-10] MEDS ORDERED: Piperacillin/Tazobactam 3.375 GM VIAL ONE (16:32)
[2022-08-10 16:48] LABS: INR-International Normal Ratio 1.6; PTT 36.3 sec (22.9-36.1); Prothrombin Time 19.7 sec (12.0-14.7)
[2022-08-10 16:57] LABS: Bacteria/HPF None Seen HPF (None Seen); Bilirubin Negative (Negative); Blood, Urine Trace (Negative); Clarity Turbid (Clear); Glucose, Urine (Dipstick) Normal (Negative); Ketone, Urine Negative (Negative); Leukocyte Negative Leu/uL (Negative); Nitrite Negative (Negative); Protein, Urine (Dipstick) 100 mg/dL (Neg-Trace); Urobilinogen Normal mg/dL (Less than 2); pH, Urine 5.5 (5.0-9.0)
[2022-08-10 16:57] LABS: SARS-CoV-2 NAA Rapid Test Not Detected (NotDetected)
[2022-08-10 16:58] LABS: Specific Gravity, Urine 1.056 (1.002-1.036)
[2022-08-10] MEDS ORDERED: Fentanyl 250 MCG/5 ML VIAL ONE (17:45)
[2022-08-10] MEDS ORDERED: Albumin 5% 0 ML ONE (18:10)
[2022-08-10] MEDS ORDERED: Norepinephrine 4 MG/4 ML VIAL ONE (18:10)
[2022-08-10] MEDS ORDERED: SUGAMMADEX SODIUM 200 MG/2 ML VIAL ONE (18:10)
[2022-08-10] MEDS ORDERED: Calcium Chloride 1 GM/10 ML Abboject SYRINGE ONE (18:16)
[2022-08-10] MEDS ORDERED: PROPOFOL 200 MG/20 ML VIAL ONE (18:16)
[2022-08-10] MEDS ORDERED: Dexamethasone 20 MG/5 ML VIAL ONE (18:16)
[2022-08-10] MEDS ORDERED: Rocuronium Bromide 10 MG/ML (10ML VIAL) ONE (18:16)
[2022-08-10] MEDS ORDERED: PHENYLEPHRINE-NS 100 MCG/ML 10 ML SYRINGE ONE (18:16)
[2022-08-10] MEDS ORDERED: ePHEDrine 50 MG/ML VIAL ONE (18:16)
[2022-08-10 18:26] LABS: Lactic Acid 3.1 mmol/L (0.5-2.2)
[2022-08-10] MEDS ORDERED: Phenylephrine 10 MG/ML VIAL ONE (19:21)
[2022-08-10] MEDS ORDERED: Ondansetron PF 4 MG/2 ML Vial IVP PRN (20:47)
[2022-08-10] MEDS ORDERED: Dextrose 50% Abboject 50 ML SYRINGE SLOW IVP PRN (20:47)
[2022-08-10] MEDS ORDERED: Dextrose 5% in Water 1,000 ML IV PRN (20:47)
[2022-08-10] MEDS ORDERED: hydrALAZINE 20 MG/ML VIAL SLOW IVP PRN (20:47)
[2022-08-10] MEDS ORDERED: Ventilator Sedation Protocol 1 EACH FS SCH (21:00)
[2022-08-10] MEDS ORDERED: Amiodarone 450 MG in Dextrose 5% in Water 250 ML IVPB SCH (21:00)
[2022-08-10] MEDS ORDERED: Sodium Chloride 0.9% 1,000 ML IV SCH (21:00)
[2022-08-10] MEDS ORDERED: Midazolam HCl 2 mg/2 ml Vial SLOW IVP PRN (21:02)
[2022-08-10] MEDS ORDERED: Morphine 4 MG/ML VIAL SLOW IVP PRN (21:15)
[2022-08-10] MEDS ORDERED: Propofol BOLUS 1,000 MG/100 ML VIAL IV PRN (21:15)
[2022-08-10] MEDS ORDERED: Fentanyl CADD 100 ML IV SCH (21:15)
[2022-08-10] MEDS ORDERED: Fentanyl BOLUS 250 ML IVPB PRN (21:15)
[2022-08-10] MEDS ORDERED: DISCONTINUE PREVIOUS NARCOTIC PAIN MEDICATIONS AND BENZODIAZEPINES FS SCH (21:15)
[2022-08-10] MEDS ORDERED: Propofol 1,000 MG/100 ML VIAL IV PRN (21:15)
[2022-08-10 21:25] LABS: Actual Bicarbonate (HCO3a) 24.1 mEq/L (22-28); Base Excess (BEa) -0.6 mEq/L (-2.0 to +3.0); CO2 Tension 39.9 mmHg (35.0-45.0); Calcium, Ionized (arterial) 1.17 mmol/L (1.12-1.30); Hemoglobin (Hb) 10.7 g/dL (14.0-18.0); O2 Tension (PaO2), arterial 113.5 mmHg (> 70.0); Potassium - ABG Lab 3.37 mmol/L (3.70-5.30)
[2022-08-10 21:26] LABS: Puncture Site Arterial Line
[2022-08-10 21:27] LABS: ALV-art Gradient 264.425 mmHg (0-20)
[2022-08-10 21:32] LABS: INR-International Normal Ratio 1.6; PTT 38.7 sec (22.9-36.1); Prothrombin Time 19.8 sec (12.0-14.7)
[2022-08-10 21:38] LABS: Lactic Acid 3.4 mmol/L (0.5-2.2)
[2022-08-10 21:43] LABS: ALT (SGPT) 7 U/L (8-55); AST (SGOT) 31 U/L (5-34); Albumin 2.8 g/dL (3.4-4.8); Alkaline Phosphatase 62 U/L (40-110); Anion Gap 14 mmol/L (10-20); BUN (Urea Nitrogen) 19 mg/dL (8.4-25.7); Bilirubin, Total 1.1 mg/dL (0.2-1.2); Calc. Creatinine Clearance 0 mL/min (70-130); Calcium 8.9 mg/dL (7.8-10.44); Carbon Dioxide 25 mmol/L (23-31); Chloride 103 mmol/L (98-107); Estimated GFR 57; Globulin 3.4 g/dL (2.4-3.5); Glucose 192 mg/dL (83-110); Magnesium 1.9 mg/dL (1.6-2.6); Phosphorus 4.7 mg/dL (2.3-4.7); Potassium 3.4 mmol/L (3.5-5.1); Protein, Total 6.2 g/dL (5.8-8.1); Sodium 139 mmol/L (136-145)
[2022-08-10 21:53] LABS: Mean Corpuscular HGB CONC 32.2 g/dL (32.0-36.0); Mean Corpuscular Volume 90.1 fl (78.0-98.0); RBC Distribution Width 17.1 % (11.5-14.5)
[2022-08-10 21:59] LABS: Troponin I 2.787 ng/mL (< 0.028)
[2022-08-10] MEDS ORDERED: TETANUS, DIPHTHERIA TOX,ADULT (TDVAX) 0.5 ML VIAL IM ONE (22:00)
[2022-08-10] MEDS ORDERED: Lactated Ringer's 1,000 ML IV SCH (22:15)
[2022-08-10 22:27] LABS: Anisocytosis SLIGHT = 6-15 cells (100X) (0-5/hpf); Band 53 % (5-11); Lymphocytes 14 % (21-51); MDiff Complete? YES; Mean Platelet Volume 7.2 fL (7.4-10.4); Metamyelocyte 1 % (0-0); Monocytes 4 % (0-10); Neutrophil 28 % (42-75); Platelet Count 221 10x3/uL (130-400); Platelet Morphology Comment Appears Adequate; Red Blood Cell (RBC) Count 3.46 mill/uL (4.70-6.10); Tear Drops SLIGHT = 2-5 cells (100X) (0-1/hpf); White Blood Cell (WBC) Count 5.9 10x3/uL (4.8-10.8)
[2022-08-10] MEDS ORDERED: Magnesium 2 GM/50 ML(in water) 2 GM in Premix Bag 1 BAG IVPB SCH (22:45)
[2022-08-10] MEDS: Piperacillin/Tazobactam 3.375 GM in Sodium Chloride 0.9% 100 ML IVPB SCH (22:49)
[2022-08-10] MEDS: Potassium Chloride 20 MEQ in Lactated Ringer's 1,000 ML IV SCH (22:50)
[2022-08-10] MEDS ORDERED: Potassium Chloride 40 MEQ in Premix Bag 1 BAG IVPB SCH (23:00)
[2022-08-10] MEDS ORDERED: Ipratropium Bromide 2.5 ml Neb ONE (23:05)
[2022-08-10 23:12] VITALS: BMI 17.7
[2022-08-10] MEDS ORDERED: Famotidine/PF 20 mg/2ml Vial SLOW IVP SCH (23:59)
[2022-08-11] MEDS: Insulin Regular 300 UNITS/3 ML VIAL SC PRN ×2 (00:53→08:48)
[2022-08-11] MEDS ORDERED: Hydrocortisone Sod Succ/PF 100 mg/2 ml Vial IVP SCH (01:30)
[2022-08-11 03:44] LABS: Lactic Acid 5.7 mmol/L (0.5-2.2)
[2022-08-11 03:46] LABS: Anion Gap 18 mmol/L (10-20); BUN (Urea Nitrogen) 21 mg/dL (8.4-25.7); Calc. Creatinine Clearance 37 mL/min (70-130); Calcium 8.9 mg/dL (7.8-10.44); Carbon Dioxide 21 mmol/L (23-31); Chloride 103 mmol/L (98-107); Estimated GFR 54; Glucose 154 mg/dL (83-110); Potassium 4.1 mmol/L (3.5-5.1); Sodium 138 mmol/L (136-145)
[2022-08-11 04:04] LABS: Critical Call Chem Troponin I RESULT DECREASING; Troponin I 2.513 ng/mL (< 0.028)
[2022-08-11 04:22] LABS: Anisocytosis SLIGHT = 6-15 cells (100X) (0-5/hpf); Band 43 % (5-11); Hemoglobin 10.6 g/dL (14.0-18.0); Lymphocytes 20 % (21-51); MDiff Complete? YES; Mean Corpuscular HGB CONC 32.7 g/dL (32.0-36.0); Mean Corpuscular Hemoglobin 29.4 pg (27.0-31.0); Mean Corpuscular Volume 89.8 fl (78.0-98.0); Mean Platelet Volume 8.1 fL (7.4-10.4); Metamyelocyte 5 % (0-0); Monocytes 6 % (0-10); Neutrophil 26 % (42-75); Platelet Count 233 10x3/uL (130-400); Platelet Morphology Comment Appears Adequate; RBC Distribution Width 17.2 % (11.5-14.5); White Blood Cell (WBC) Count 7.5 10x3/uL (4.8-10.8)
[2022-08-11] MEDS: Piperacillin/Tazobactam 3.375 GM in Sodium Chloride 0.9% 100 ML IVPB SCH ×3 (05:26→21:35)
[2022-08-11] MEDS ORDERED: Piperacillin/Tazobactam 3.375 GM VIAL ONE (05:29)
[2022-08-11 07:12] LABS: Actual Bicarbonate (HCO3a) 25.6 mEq/L (22-28); Base Excess (BEa) 2.6 mEq/L (-2.0 to +3.0); CO2 Tension 33.7 mmHg (35.0-45.0); Calcium, Ionized (arterial) 1.12 mmol/L (1.12-1.30); Carboxyhemoglobin (COHb) 0.3 gm% (0.0-3.0); Hemoglobin (Hb) 11.1 g/dL (14.0-18.0); O2 Tension (PaO2), arterial 154.1 mmHg (> 70.0); Potassium - ABG Lab 4.18 mmol/L (3.70-5.30)
[2022-08-11 07:27] LABS: ALV-art Gradient 88.975 mmHg (0-20); Puncture Site ALINE
[2022-08-11] MEDS: Potassium Chloride 20 MEQ in Lactated Ringer's 1,000 ML IV SCH (09:00)
[2022-08-11] MEDS ORDERED: Morphine 2 MG/ML VIAL SLOW IVP PRN (09:12)
[2022-08-11] MEDS ORDERED: Morphine 4 MG/ML VIAL SLOW IVP PRN (09:12)
[2022-08-11] MEDS ORDERED: Digoxin 0.5 MG/2 ML AMP SLOW IVP SCH (09:30)
[2022-08-11] MEDS: Lactated Ringer's 1,000 ML IV SCH ×2 (09:41→21:34)
[2022-08-11] MEDS: Digoxin 0.5 MG/2 ML AMP SLOW IVP SCH ×2 (16:12→21:34)
[2022-08-11] MEDS ORDERED: Albuterol Sulfate 2.5 mg/3 ml Neb ONE ×2 (18:16→22:23)
[2022-08-11 19:47] LABS: Lactic Acid 1.4 mmol/L (0.5-2.2)
[2022-08-11 19:51] LABS: Anion Gap 12 mmol/L (10-20); BUN (Urea Nitrogen) 23 mg/dL (8.4-25.7); Calc. Creatinine Clearance 42 mL/min (70-130); Calcium 8.6 mg/dL (7.8-10.44); Carbon Dioxide 26 mmol/L (23-31); Chloride 106 mmol/L (98-107); Estimated GFR 62; Glucose 134 mg/dL (83-110); Magnesium 1.8 mg/dL (1.6-2.6); Phosphorus 3.9 mg/dL (2.3-4.7); Potassium 3.8 mmol/L (3.5-5.1)
[2022-08-11 20:00] LABS: Band 15 % (5-11); Hemoglobin 9.8 g/dL (14.0-18.0); Hypochromia SLIGHT = 6-15 cells (100X) (0-5/hpf); Lymphocytes 6 % (21-51); MDiff Complete? YES; Mean Corpuscular HGB CONC 32.5 g/dL (32.0-36.0); Mean Corpuscular Hemoglobin 29.3 pg (27.0-31.0); Mean Platelet Volume 7.3 fL (7.4-10.4); Monocytes 11 % (0-10); Neutrophil 65 % (42-75); Platelet Count 230 10x3/uL (130-400); Platelet Morphology Comment Appears Adequate; Reactive Lymphocytes 3 % (0-10); Red Blood Cell (RBC) Count 3.35 mill/uL (4.70-6.10); White Blood Cell (WBC) Count 12.2 10x3/uL (4.8-10.8)
[2022-08-11 20:04] LABS: Sodium 140 mmol/L (136-145)
[2022-08-11 20:06] LABS: Troponin I 1.098 ng/mL (< 0.028)
[2022-08-11] MEDS ORDERED: Enoxaparin Sodium 30 MG/0.3 ML SYRINGE SC SCH (21:00)
[2022-08-11] MEDS ORDERED: Potassium Phosphate 15 MMOL in Sodium Chloride 0.9% 250 ML 250 ML IVPB SCH (22:00)
[2022-08-11] MEDS: Magnesium 2 GM/50 ML(in water) 2 GM in Premix Bag 1 BAG IVPB SCH (23:02)
[2022-08-12] MEDS: Magnesium 2 GM/50 ML(in water) 2 GM in Premix Bag 1 BAG IVPB SCH
[2022-08-12] MEDS: Lactated Ringer's 1,000 ML IV SCH (04:41)
[2022-08-12 04:59] LABS: Anion Gap 10 mmol/L (10-20); BUN (Urea Nitrogen) 21 mg/dL (8.4-25.7); Calc. Creatinine Clearance 47 mL/min (70-130); Calcium 8.6 mg/dL (7.8-10.44); Carbon Dioxide 27 mmol/L (23-31); Chloride 107 mmol/L (98-107); Estimated GFR 70; Glucose 99 mg/dL (83-110); Magnesium 2.8 mg/dL (1.6-2.6); Phosphorus 4.5 mg/dL (2.3-4.7); Sodium 140 mmol/L (136-145)
[2022-08-12 05:06] LABS: Lactic Acid 1.2 mmol/L (0.5-2.2)
[2022-08-12] MEDS: Piperacillin/Tazobactam 3.375 GM in Sodium Chloride 0.9% 100 ML IVPB SCH ×3 (05:26→21:29)
[2022-08-12 06:14] LABS: Band 22 % (5-11); Hemoglobin 8.9 g/dL (14.0-18.0); Hypochromia SLIGHT = 6-15 cells (100X) (0-5/hpf); Lymphocytes 12 % (21-51); MDiff Complete? YES; Mean Corpuscular Hemoglobin 29.1 pg (27.0-31.0); Mean Platelet Volume 7.5 fL (7.4-10.4); Neutrophil 66 % (42-75); Platelet Count 216 10x3/uL (130-400); Platelet Morphology Comment Appears Adequate; RBC Distribution Width 16.9 % (11.5-14.5); Red Blood Cell (RBC) Count 3.07 mill/uL (4.70-6.10); White Blood Cell (WBC) Count 11.1 10x3/uL (4.8-10.8)
[2022-08-12] MEDS ORDERED: Famotidine/PF 20 mg/2ml Vial SLOW IVP SCH (09:00)
[2022-08-12] MEDS ORDERED: chlorproMAZINE HCl 25 MG TAB PO PRN ×2 (09:30→12:03)
[2022-08-12] MEDS ORDERED: Furosemide 40 MG/4 ML VIAL ONE (09:38)
[2022-08-12] MEDS ORDERED: Furosemide 20 MG/2 ML VIAL SLOW IVP SCH (09:45)
[2022-08-12] MEDS ORDERED: Tamsulosin HCl 0.4 MG CAP PO SCH ×2 (10:00→10:30)
[2022-08-12] MEDS: Acetaminophen 500 MG TAB PO SCH ×3 (10:14→21:29)
[2022-08-12] MEDS: traMADol HCl 50 MG TAB PO SCH ×3 (12:21→23:22)
[2022-08-12] MEDS: Ferrous Sulfate 325 MG TAB PO SCH (18:16)
[2022-08-12] MEDS: chlorproMAZINE HCl 25 MG TAB PO PRN (18:43)
[2022-08-12] MEDS: Apixaban 5 MG TAB PO SCH (21:29)
[2022-08-12] MEDS: Senokot S 8.6-50 MG TAB PO SCH (21:29)
[2022-08-12] MEDS: Carvedilol 3.125 MG TAB PO SCH (21:29)
[2022-08-13] MEDS: Acetaminophen 500 MG TAB PO SCH ×4 (04:18→21:38)
[2022-08-13] MEDS: Piperacillin/Tazobactam 3.375 GM in Sodium Chloride 0.9% 100 ML IVPB SCH ×3 (05:18→21:37)
[2022-08-13] MEDS: traMADol HCl 50 MG TAB PO SCH ×3 (05:18→17:23)
[2022-08-13 05:53] LABS: #Eosinphils 0.1 thou/uL (0.0-0.7); #Lymphocytes 1.1 thou/uL (1.20-3.40); #Monocytes 0.4 thou/uL (0.11-0.59); #Neutrophils 6.2 thou/uL (1.40-6.50); %Basophils 0.3 % (0.0-1.0); %Eosinophils 1.2 % (0.0-10.0); %Lymphocytes 14.2 % (21.0-51.0); %Monocytes 4.6 % (0.0-10.0); %Neutrophils 79.7 % (42.0-75.0); Hemoglobin 8.5 g/dL (14.0-18.0); Mean Corpuscular HGB CONC 32.6 g/dL (32.0-36.0); Mean Corpuscular Hemoglobin 29.5 pg (27.0-31.0); Mean Corpuscular Volume 90.5 fl (78.0-98.0); Mean Platelet Volume 7.8 fL (7.4-10.4); Platelet Count 190 10x3/uL (130-400); RBC Distribution Width 17.1 % (11.5-14.5); Red Blood Cell (RBC) Count 2.89 mill/uL (4.70-6.10); White Blood Cell (WBC) Count 7.8 10x3/uL (4.8-10.8)
[2022-08-13 06:15] LABS: Anion Gap 11 mmol/L (10-20); BUN (Urea Nitrogen) 17 mg/dL (8.4-25.7); Calc. Creatinine Clearance 62 mL/min (70-130); Calcium 8.7 mg/dL (7.8-10.44); Carbon Dioxide 24 mmol/L (23-31); Chloride 105 mmol/L (98-107); Estimated GFR 93; Glucose 84 mg/dL (83-110); Magnesium 1.9 mg/dL (1.6-2.6); Phosphorus 2.7 mg/dL (2.3-4.7); Potassium 3.7 mmol/L (3.5-5.1); Sodium 136 mmol/L (136-145)
[2022-08-13] MEDS ORDERED: Magnesium 2 GM/50 ML(in water) 2 GM in Premix Bag 1 BAG IVPB SCH (09:00)
[2022-08-13] MEDS ORDERED: Potassium Phosphate 30 MMOL, Magnesium Sulfate 2 GM in Sodium Chloride 0.9% 250 ML IVPB SCH (09:00)
[2022-08-13] MEDS ORDERED: Tamsulosin HCl 0.4 MG CAP PO SCH ×2 (09:00)
[2022-08-13] MEDS: Polyethylene Glycol 3350 17 GM Packet PO SCH (09:16)
[2022-08-13] MEDS: Carvedilol 3.125 MG TAB PO SCH ×2 (09:16→21:38)
[2022-08-13] MEDS: Senokot S 8.6-50 MG TAB PO SCH ×2 (09:16→21:38)
[2022-08-13] MEDS: Ferrous Sulfate 325 MG TAB PO SCH ×2 (09:16→17:22)
[2022-08-13] MEDS: Apixaban 5 MG TAB PO SCH ×2 (09:16→21:37)
[2022-08-13] MEDS: Tamsulosin HCl 0.4 MG CAP PO SCH (09:17)
[2022-08-14] MEDS: traMADol HCl 50 MG TAB PO SCH ×4 (00:50→17:12)
[2022-08-14] MEDS: Acetaminophen 500 MG TAB PO SCH ×4 (04:52→21:14)
[2022-08-14] MEDS: Piperacillin/Tazobactam 3.375 GM in Sodium Chloride 0.9% 100 ML IVPB SCH ×3 (05:12→21:15)
[2022-08-14 06:32] LABS: Hemoglobin 8.9 g/dL (14.0-18.0); Mean Corpuscular HGB CONC 32.4 g/dL (32.0-36.0); Mean Corpuscular Volume 89.7 fl (78.0-98.0); Mean Platelet Volume 7.5 fL (7.4-10.4); Platelet Count 209 10x3/uL (130-400); RBC Distribution Width 17.1 % (11.5-14.5); Red Blood Cell (RBC) Count 3.08 mill/uL (4.70-6.10); White Blood Cell (WBC) Count 8.1 10x3/uL (4.8-10.8)
[2022-08-14 06:38] LABS: Anion Gap 10 mmol/L (10-20); BUN (Urea Nitrogen) 12 mg/dL (8.4-25.7); Calc. Creatinine Clearance 75 mL/min (70-130); Calcium 8.5 mg/dL (7.8-10.44); Carbon Dioxide 20 mmol/L (23-31); Chloride 105 mmol/L (98-107); Estimated GFR 99; Glucose 91 mg/dL (83-110); Magnesium 1.6 mg/dL (1.6-2.6); Phosphorus 2.5 mg/dL (2.3-4.7); Potassium 4.1 mmol/L (3.5-5.1); Sodium 131 mmol/L (136-145)
[2022-08-14 06:49] LABS: Band 4 % (5-11); Eosinophils 1 % (0-10); Lymphocytes 16 % (21-51); MDiff Complete? YES; Monocytes 5 % (0-10); Neutrophil 74 % (42-75)
[2022-08-14] MEDS: chlorproMAZINE HCl 25 MG TAB PO PRN (08:29)
[2022-08-14] MEDS: Ferrous Sulfate 325 MG TAB PO SCH ×2 (08:32→17:09)
[2022-08-14] MEDS: Apixaban 5 MG TAB PO SCH ×2 (08:33→21:14)
[2022-08-14] MEDS: Tamsulosin HCl 0.4 MG CAP PO SCH (08:33)
[2022-08-14] MEDS: Carvedilol 3.125 MG TAB PO SCH ×2 (08:33→21:12)
[2022-08-14] MEDS: Senokot S 8.6-50 MG TAB PO SCH ×2 (08:36→21:15)
[2022-08-14] MEDS: Polyethylene Glycol 3350 17 GM Packet PO SCH (08:36)
[2022-08-14] MEDS ORDERED: Magnesium 2 GM/50 ML(in water) 3 GM in Premix Bag 1 BAG IVPB SCH (09:00)
[2022-08-14] MEDS ORDERED: Sodium Phosphate 30 MMOL in Sodium Chloride 0.9% 250 ML 250 ML IVPB SCH ×2 (09:00→15:00)
[2022-08-14] MEDS ORDERED: Magnesium 2 GM/50 ML(in water) 2 GM in Premix Bag 1 BAG IVPB SCH (15:00)
[2022-08-14] MEDS: traMADol HCl 50 MG TAB PO PRN (23:36)
[2022-08-15] MEDS: Acetaminophen 500 MG TAB PO SCH ×4 (04:06→20:07)
[2022-08-15] MEDS: Piperacillin/Tazobactam 3.375 GM in Sodium Chloride 0.9% 100 ML IVPB SCH (05:19)
[2022-08-15 06:52] LABS: Anion Gap 11 mmol/L (10-20); BUN (Urea Nitrogen) 9 mg/dL (8.4-25.7); Calc. Creatinine Clearance 79 mL/min (70-130); Calcium 7.9 mg/dL (7.8-10.44); Carbon Dioxide 18 mmol/L (23-31); Chloride 107 mmol/L (98-107); Estimated GFR 100; Glucose 94 mg/dL (83-110); Magnesium 1.9 mg/dL (1.6-2.6); Potassium 3.4 mmol/L (3.5-5.1); Sodium 133 mmol/L (136-145)
[2022-08-15 08:06] LABS: Hemoglobin 9.1 g/dL (14.0-18.0); Mean Corpuscular HGB CONC 33.4 g/dL (32.0-36.0); Mean Corpuscular Hemoglobin 29.4 pg (27.0-31.0); Mean Corpuscular Volume 88.2 fl (78.0-98.0); Platelet Count 237 10x3/uL (130-400); RBC Distribution Width 17.3 % (11.5-14.5); Red Blood Cell (RBC) Count 3.09 mill/uL (4.70-6.10); White Blood Cell (WBC) Count 7.1 10x3/uL (4.8-10.8)
[2022-08-15 08:07] LABS: Band 4 % (5-11); Eosinophils 4 % (0-10); Helmet Cells SLIGHT = 2-5 cells (100X) (0-1/hpf); Lymphocytes 21 % (21-51); MDiff Complete? YES; Monocytes 7 % (0-10); Neutrophil 63 % (42-75); Platelet Morphology Comment Appears Adequate; Polychromasia SLIGHT = 2-3 cells (100X) (0-2/hpf); Reactive Lymphocytes 1 % (0-10); Schistocytes SLIGHT = 2-5 cells (100X) (0-1/hpf)
[2022-08-15] MEDS: Carvedilol 3.125 MG TAB PO SCH ×2 (08:45→20:06)
[2022-08-15] MEDS: Tamsulosin HCl 0.4 MG CAP PO SCH (08:45)
[2022-08-15] MEDS: Ferrous Sulfate 325 MG TAB PO SCH ×2 (08:46→16:21)
[2022-08-15] MEDS: Apixaban 5 MG TAB PO SCH ×2 (08:46→20:07)
[2022-08-15] MEDS: Senokot S 8.6-50 MG TAB PO SCH ×2 (08:46→20:07)
[2022-08-15] MEDS: Polyethylene Glycol 3350 17 GM Packet PO SCH (08:46)
[2022-08-15] MEDS ORDERED: Potassium Phosphate 30 MMOL, Magnesium Sulfate 2 GM in Sodium Chloride 0.9% 250 ML IVPB SCH (09:00)
[2022-08-15] MEDS ORDERED: Magnesium 2 GM/50 ML(in water) 2 GM in Premix Bag 1 BAG IVPB SCH (09:00)
[2022-08-15] MEDS: chlorproMAZINE HCl 25 MG TAB PO PRN (19:59)
[2022-08-16] MEDS: Acetaminophen 500 MG TAB PO SCH ×4 (04:42→21:30)
[2022-08-16 06:41] LABS: #Eosinphils 0.3 thou/uL (0.0-0.7); #Lymphocytes 1.7 thou/uL (1.20-3.40); #Monocytes 0.8 thou/uL (0.11-0.59); #Neutrophils 5.1 thou/uL (1.40-6.50); %Eosinophils 3.2 % (0.0-10.0); %Lymphocytes 21.8 % (21.0-51.0); %Monocytes 9.6 % (0.0-10.0); %Neutrophils 65.4 % (42.0-75.0); Hemoglobin 9.7 g/dL (14.0-18.0); Mean Corpuscular HGB CONC 32.5 g/dL (32.0-36.0); Mean Corpuscular Hemoglobin 29.4 pg (27.0-31.0); Mean Corpuscular Volume 90.2 fl (78.0-98.0); Mean Platelet Volume 7.5 fL (7.4-10.4); Platelet Count 266 10x3/uL (130-400); RBC Distribution Width 17.7 % (11.5-14.5); White Blood Cell (WBC) Count 7.8 10x3/uL (4.8-10.8)
[2022-08-16 07:31] LABS: Anion Gap 13 mmol/L (10-20); BUN (Urea Nitrogen) 9 mg/dL (8.4-25.7); Calc. Creatinine Clearance 90 mL/min (70-130); Calcium 8.1 mg/dL (7.8-10.44); Carbon Dioxide 13 mmol/L (23-31); Chloride 107 mmol/L (98-107); Estimated GFR 104; Glucose 90 mg/dL (83-110); Magnesium 1.7 mg/dL (1.6-2.6); Phosphorus 1.9 mg/dL (2.3-4.7); Potassium 3.9 mmol/L (3.5-5.1); Sodium 129 mmol/L (136-145)
[2022-08-16] MEDS ORDERED: Magnesium 2 GM/50 ML(in water) 4 GM in Premix Bag 1 BAG IVPB SCH (07:45)
[2022-08-16 08:18] LABS: #Eosinphils 0.2 thou/uL (0.0-0.7); #Lymphocytes 1.7 thou/uL (1.20-3.40); #Monocytes 0.6 thou/uL (0.11-0.59); #Neutrophils 4.9 thou/uL (1.40-6.50); %Basophils 0.5 % (0.0-1.0); %Eosinophils 3.2 % (0.0-10.0); %Lymphocytes 22.5 % (21.0-51.0); %Monocytes 8.6 % (0.0-10.0); %Neutrophils 65.3 % (42.0-75.0); Hemoglobin 9.4 g/dL (14.0-18.0); Mean Corpuscular HGB CONC 32.5 g/dL (32.0-36.0); Mean Corpuscular Hemoglobin 28.4 pg (27.0-31.0); Mean Corpuscular Volume 87.2 fl (78.0-98.0); Mean Platelet Volume 7.6 fL (7.4-10.4); Platelet Count 278 10x3/uL (130-400); RBC Distribution Width 17.8 % (11.5-14.5); Red Blood Cell (RBC) Count 3.33 mill/uL (4.70-6.10); White Blood Cell (WBC) Count 7.5 10x3/uL (4.8-10.8)
[2022-08-16] MEDS ORDERED: Magnesium Sulfate In Water 4 GM in Premix Bag 1 BAG IVPB SCH (09:00)
[2022-08-16] MEDS ORDERED: Sodium Phosphate 30 MMOL in Sodium Chloride 0.9% 250 ML 250 ML IVPB SCH (09:00)
[2022-08-16] MEDS: Saccharomyces boulardii 250 MG CAP PO SCH (09:13)
[2022-08-16] MEDS: Tamsulosin HCl 0.4 MG CAP PO SCH (09:13)
[2022-08-16] MEDS: Apixaban 5 MG TAB PO SCH ×2 (09:13→20:07)
[2022-08-16] MEDS: Carvedilol 3.125 MG TAB PO SCH ×2 (09:13→20:06)
[2022-08-16] MEDS: Ferrous Sulfate 325 MG TAB PO SCH ×2 (09:13→16:52)
[2022-08-16] MEDS: chlorproMAZINE HCl 25 MG TAB PO PRN (20:22)
[2022-08-17] MEDS: Acetaminophen 500 MG TAB PO SCH ×2 (03:18→09:53)
[2022-08-17] MEDS: traMADol HCl 50 MG TAB PO PRN (03:23)
[2022-08-17 07:05] LABS: Anion Gap 10 mmol/L (10-20); BUN (Urea Nitrogen) 6 mg/dL (8.4-25.7); Calc. Creatinine Clearance 90 mL/min (70-130); Calcium 7.7 mg/dL (7.8-10.44); Carbon Dioxide 18 mmol/L (23-31); Chloride 108 mmol/L (98-107); Estimated GFR 104; Glucose 81 mg/dL (83-110); Magnesium 1.8 mg/dL (1.6-2.6); Phosphorus 2.3 mg/dL (2.3-4.7); Potassium 3.5 mmol/L (3.5-5.1); Sodium 132 mmol/L (136-145)
[2022-08-17] MEDS ORDERED: Potassium Chloride 20 MEQ TAB PO SCH (07:30)
[2022-08-17] MEDS: Carvedilol 3.125 MG TAB PO SCH (09:53)
[2022-08-17] MEDS: Ferrous Sulfate 325 MG TAB PO SCH (09:53)
[2022-08-17] MEDS: Saccharomyces boulardii 250 MG CAP PO SCH (09:53)
[2022-08-17] MEDS: Apixaban 5 MG TAB PO SCH (09:53)
[2022-08-17] MEDS: Tamsulosin HCl 0.4 MG CAP PO SCH (09:54)
[2022-08-17 11:52] VITALS: BP 130/81; TEMP 98.5
== END 2022-08-17 14:30 | disposition home or self-care (01) | DRG 853 ==
LOC: ERS 13:26 → ERHOLD 15:35 → CCU 21:26 → SURG B 08-12 14:32
PROVIDERS: ADMIT Student in an Organized Health Care Education/Training Program; ATTEND Student in an Organized Health Care Education/Training Program
PROC: 02H633Z Insertion of Infusion Device into Right Atrium, Percutaneous Approach (ICD-10-PCS; principal; 2022-08-10)
PROC: 0DB80ZZ Excision of Small Intestine, Open Approach (ICD-10-PCS; 2022-08-10)
PROC: 3E04329 Introduction of Other Anti-infective into Central Vein, Percutaneous Approach (ICD-10-PCS; 2022-08-10)
PROC: 30233N1 Transfusion of Nonautologous Red Blood Cells into Peripheral Vein, Percutaneous Approach (ICD-10-PCS; 2022-08-10)
PROC: 30233K1 Transfusion of Nonautologous Frozen Plasma into Peripheral Vein, Percutaneous Approach (ICD-10-PCS; 2022-08-10)
PROC: 0DH67UZ Insertion of Feeding Device into Stomach, Via Natural or Artificial Opening (ICD-10-PCS; 2022-08-10)
PROC: 3E0G76Z Introduction of Nutritional Substance into Upper GI, Via Natural or Artificial Opening (ICD-10-PCS; 2022-08-10)
DX: A41.9 Sepsis, unspecified organism (principal); I21.A1 Myocardial infarction type 2; J96.00 Acute respiratory failure, unspecified whether with hypoxia or hypercapnia; R65.21 Severe sepsis with septic shock; N17.9 Acute kidney failure, unspecified; K55.9 Vascular disorder of intestine, unspecified; I50.32 Chronic diastolic (congestive) heart failure; I48.20 Chronic atrial fibrillation, unspecified; K56.609 Unspecified intestinal obstruction, unspecified as to partial versus complete obstruction; D62 Acute posthemorrhagic anemia; E87.1 Hypo-osmolality and hyponatremia; Z20.822 Contact with and (suspected) exposure to COVID-19; E78.5 Hyperlipidemia, unspecified; I73.9 Peripheral vascular disease, unspecified; E87.6 Hypokalemia; E87.5 Hyperkalemia; E83.39 Other disorders of phosphorus metabolism; M10.9 Gout, unspecified; I11.0 Hypertensive heart disease with heart failure; N40.0 Benign prostatic hyperplasia without lower urinary tract symptoms; Z87.891 Personal history of nicotine dependence; Z79.899 Other long term (current) drug therapy; Z86.718 Personal history of other venous thrombosis and embolism; Z86.711 Personal history of pulmonary embolism; Z95.810 Presence of automatic (implantable) cardiac defibrillator
CPT/HCPCS: 36415; 36416; 36430; 36556; 51702; 71045; 74018; 74177; 80048; 80053; 81003; 81015; 82533; 82553; 82805; 83605; 83735; 83880; 84100; 84484; 85025; 85610; 85730; 86850; 86900; 86901; 87040; 87070; 87086; 87205; 87811; 88307; 93005; 94002; 94003; 94640; 94760; 96365; 96366; 96367; 96368; 96375; 99292; A4649; C1776; J0282; J0692; J1100; J1160; J1650; J1720; J1815; J1940; J2270; J2370; J2405; J2543; J2704; J3010; J3370-JW; J3475; J3480; J3490; J7030; J7050; J7070; J7120; J7611; J7620; P9016; P9045; P9059; Q0161; Q9967; S0028

== ENCOUNTER 2022-10-04 15:31 | Outpatient (CLI) | payer MEDICARE ==
[2022-10-04 16:22] LABS: Hemoglobin 11.1 g/dL (13.5-17.5); Mean Corpuscular HGB CONC 32.7 g/dL (32.0-36.0); Mean Corpuscular Hemoglobin 28.8 pg (27.0-33.0); Mean Corpuscular Volume 88.1 fl (81.2-95.1); Mean Platelet Volume 9.7 fl (7.4-10.4); Platelet Count 202 10x3/uL (150-450); Red Blood Cell (RBC) Count 3.85 10x6/uL (4.32-5.72); White Blood Cell (WBC) Count 5.9 10x3/uL (3.5-10.5)
[2022-10-04 16:45] LABS: Anion Gap 13 mmol/L (10-20); BUN (Urea Nitrogen) 13 mg/dL (8.4-25.7); Calc. Creatinine Clearance 0 mL/min (70-130); Calcium 9.2 mg/dL (7.8-10.44); Carbon Dioxide 24 mmol/L (23-31); Chloride 107 mmol/L (98-107); Estimated GFR 94; Glucose 90 mg/dL (83-110); Potassium 3.7 mmol/L (3.5-5.1); Sodium 140 mmol/L (136-145)
[2022-10-04 16:52] LABS: INR-International Normal Ratio 1.1; PTT 27.3 sec (22.0-33.0); Prothrombin Time 11.4 sec (9.5-12.1)
== END 2022-10-04 15:32 | disposition home or self-care (01) ==
LOC: LABBT 15:31
PROVIDERS: ATTEND Internal Medicine Cardiovascular Disease
DX: Z01.812 Encounter for preprocedural laboratory examination (principal); I48.0 Paroxysmal atrial fibrillation
CPT/HCPCS: 80048; 85027; 85610; 85730